=== PATIENT | female | born 1975 | race Caucasian/White ===

== ENCOUNTER 2020-05-02 14:01 | Outpatient (CLI) | payer OTHER, SELFPAY ==
--- NOTE | ~2020-05-02 | MR_ITS ---
EXAMINATION: MR brain/brain stem wo/w con DATE: 05/02/2020 15:26 INDICATION: Multiple sclerosis. TECHNIQUE: Magnetic resonance imaging (MRI) of the brain and brainstem was performed without and with 20 mL MultiHance intravenous contrast. Sequences included sagittal and axial T1-weighted FLAIR, axia l T1-weighted FSE, axial diffusion-weighted FS EPI, sagittal T2-weighted FLAIR, axial T2*-weighted GR E, axial T2-weighted FLAIR Propeller, and axial T2-weighted Propeller. Postcontrast sequences include d axial, coronal, and sagittal T1-weighted FSE. Apparent diffusion coefficient (ADC) maps were create d. COMPARISON: Brain MRI 10/08/2018 FINDINGS: There are approximately 9 total lesions of increased T2-weighted signal intensity in the br ain, one of which is new from 10/08/18. Of these lesions, approximately 1 is periventricular, none ar e juxtacortical, and none are infratentorial. None of the lesions enhance. There is no acute ischemic infarct or intracranial hemorrhage. The ventricles are normal in size. The paranasal sinuses are con ar. The orbits are normal. The mastoid air cells are normal. IMPRESSION: 1. Slight worsening of mild cerebral white matter disease, consistent with multiple sclerosis and/or chronic small vessel ischemic disease (given the smoking history). Reviewed, dictated and finalized at location A. IMPRESSION: 1. Slight worsening of mild cerebral white matter disease, consistent with mult iple sclerosis and/or chronic small vessel ischemic disease (given the smoking history).
[2020-05-02 14:44] LABS: Estimated Glomerular Filt Rate > 60
== END 2020-05-02 14:02 | disposition home or self-care (01) ==
PROVIDERS: PCP Nurse Practitioner Family
DX: G35 Multiple sclerosis (principal); R90.82 White matter disease, unspecified
CPT/HCPCS: 36415; 70553; A9577

== ENCOUNTER 2020-07-20 00:38 | Outpatient (CLI) | payer OTHER, SELFPAY ==
[2020-07-20 19:29] LABS: SARS-CoV-2 RNA PCR Negative
== END 2020-07-20 00:39 | disposition home or self-care (01) ==
LOC: ANHCOVIDDT 00:38
PROVIDERS: PCP Nurse Practitioner Family; Visit Provider Obstetrics & Gynecology Gynecology
DX: Z01.812 Encounter for preprocedural laboratory examination (principal); Z20.828 Contact with and (suspected) exposure to other viral communicable diseases
CPT/HCPCS: 87635; C9803; U0003

== ENCOUNTER 2020-07-20 08:40 | Outpatient (CLI) | payer OTHER, SELFPAY ==
--- NOTE | 2020-07-20 08:42 | ECG_ITS ---
Measurements Intervals [place] Rate: 92 P: 52 IA: 153 QRS: 23 QRSD: 88 T: 68 QT: 336 QTc: 418 Interpretive Statements SINUS RHYTHM LOW QRS VOLTAGE IN PRECORDIAL LEADS BASELINE ARTIFACT- I, II, III, AVR, AVL, AVF BORDERLINE ECG Electronically Signed On 07-20-2020 10:27:42 CDT by Choco Orantes D.O.
== END 2020-07-20 08:41 | disposition home or self-care (01) ==
PROVIDERS: PCP Nurse Practitioner Family; Visit Provider Obstetrics & Gynecology Gynecology
DX: F17.210 Nicotine dependence, cigarettes, uncomplicated (principal); R94.31 Abnormal electrocardiogram [ECG] [EKG]
CPT/HCPCS: 93005

== ENCOUNTER 2020-07-23 00:36 | Day surgery (SDC) | payer OTHER, SELFPAY ==
[2020-07-12 14:19] VITALS: BMI 38.2
--- NOTE | 2020-07-23 08:44 | P.HP_ITS ---
History of Present Illness History of Present Illness Consent: Risks, benefits, and alternatives have been discussed and questions answered. Patient agrees to proceed with procedure. Chief complaint: Abnormal Uterine Bleeding/ Endometrial Polyp Narrative: Courtney Potter is a 44 year old female with menorrhagia. Office hysteroscopy with large polyp noted and unable to tolerate removal. Plan to proceed with hysteroscopy possible myosure and D&C. Reviewed risks of infection, bleeding, perforation, and fluid overload. Agrees to proceed. [facility] [place] Past Medical History Medical History (Updated 07/23/20 @ 08:48 by Nessa Gutierrez MD) delivery delivered x 2 Depression GERD (gastroesophageal reflux disease) History of hysteroscopy 2019 Multiple sclerosis Type 2 diabetes mellitus Surgical History Surgical History (Updated 07/23/20 @ 08:48 by Nessa Gutierrez MD) H/O breast biopsy Family History Family History (Updated 07/20/14 @ 07:13 by DOCTOR UNKNOWN) Mother Cerebrovascular accident Father Family history of lung cancer Social History Social History Smoking packs per day: 1 Smoking cigarettes per day: 20.0 Years smoked: 29 Smoking pack-years: 29.00 Smoking status: Current every day smoker Tobacco type: cigarettes Alcohol intake: current Drinks per week: 6 Substance use: never Living arrangements: with family Gender identity (if verbalized by the patient): Female Spiritual care concerns: No Meds Home Medications and Allergies Home Medications Medication Instructions Recorded Confirmed Type Probiotic (with Vitamin D3) 1 tab-cap PO DAILY 07/12/20 07/12/20 History duloxetine [Cymbalta] 60 mg PO BID 07/12/20 07/12/20 History esomeprazole magnesium [Nexium] 20 mg PO BID 07/12/20 07/12/20 History fingolimod [Gilenya] 0.5 mg PO DAILY 07/12/20 07/12/20 History temazepam 30 mg PO HS 07/12/20 07/12/20 History Allergies Allergy/AdvReac Type Severity Reaction Status Date / Time No Known Allergies Allergy Mild Unverified 07/12/20 13:46 Exam Const: General: healthy appearing and alert Orientation/consciousness: patient oriented x3 Resp: Effort & Inspection: normal respiratory effort Auscultation: clear to auscultation bilaterally Cardio: Rate: regular rate Rhythm: regular rhythm GI: GI Palp: Yes Soft to palpation, No Tenderness to palpation present (GI) and No Palpable mass present : External Female Exam: normal external appearance Speculum Exam - Vagina: normal appearance of the vagina and normal vaginal discharge Speculum Exam - Cervix: normal appearance of the cervix Bimanual exam- vagina & uterus: uterine size normal and consistency normal Bimanual Exam- Adnexa, other: normal adnexae and No adnexal tenderness Neuro: General: patient oriented x3 Assessment and Plan Assessment and plan (1) Menorrhagia: Code(s): N92.0 - Excessive and frequent menstruation with regular cycle Status: Acute Assessment and Plan: Plan to proceed with hysteroscopy, D&C, and possible myosure
--- NOTE | 2020-07-23 09:14 | WPDANESEPP ---
Anes - Eval Pre Procedure Procedure: Operation Date: 07/23/20 12:15 Proposed Procedures p Hysteroscopy, Dilation and Curettage, Possible Myosure - Nessa Gutierrez MD Date/Time: 07/23/20 09:14 Pre Op Diagnosis: Abnormal Uterine Bleeding/ Endometrial Polyp Patient Data Age: 44 Gender: F Height: 5 ft 5 in Weight: 104.33 kg Allergies Allergy/AdvReac Type Severity Reaction Status Date / Time No Known Allergies Allergy Mild Unverified 07/12/20 13:46 Home Medications Medication Instructions Recorded Confirmed Type Probiotic (with Vitamin D3) 1 tab-cap PO DAILY 07/12/20 07/12/20 History duloxetine [Cymbalta] 60 mg PO BID 07/12/20 07/12/20 History esomeprazole magnesium [Nexium] 20 mg PO BID 07/12/20 07/12/20 History fingolimod [Gilenya] 0.5 mg PO DAILY 07/12/20 07/12/20 History temazepam 30 mg PO HS 07/12/20 07/12/20 History Patient hx anesthesia problems: none Family hx anesthesia problems: none PMFSH Past Medical History Medical History delivery delivered x 2 Depression GERD (gastroesophageal reflux disease) History of hysteroscopy 2019 Menorrhagia Multiple sclerosis Type 2 diabetes mellitus Surgical History Surgical History H/O breast biopsy Family History Family History Mother Cerebrovascular accident Father Family history of lung cancer Social History Social History Smoking packs per day: 1 Smoking cigarettes per day: 20.0 Years smoked: 29 Smoking pack-years: 29.00 Smoking status: Current every day smoker Tobacco type: cigarettes Alcohol intake: current Drinks per week: 6 Substance use: never Living arrangements: with family Gender identity (if verbalized by the patient): Female Spiritual care concerns: No Exam Day of Procedure 07/23/20 09:14 Patient weight: obese Neurological: alert and oriented Risks: SINUS RHYTHM LOW QRS VOLTAGE IN PRECORDIAL LEADS BASELINE ARTIFACT- I, II, III, AVR, AVL, AV BORDERLINE ECG VR92
[2020-07-23 10:02] VITALS: BP 140/85; PULSE 95; RESP 18; TEMP 35.9; O2SAT 97
[2020-07-23] MEDS: ACETAMINOPHEN 500 MG TABLET 1000 MG PO (10:10)
[2020-07-23] MEDS: LACTATED RINGERS 1,000 ML 30 ML IV CONT (10:15)
--- NOTE | 2020-07-23 10:21 | P.PNAN_ITS ---
Anes - Eval Final PreProcedure Day of Procedure 07/23/20 10:21 Patient weight: obese Heart: regular rate and rhythm Lungs: clear to auscultation Airway: Mallampati scale class II Neurological: alert and oriented Last oral intake: >/= 8 hours ASA classification: III Emergent: no Anesthetic plan: proceed Anesthesia type and monitoring: general GIVS and standard monitoring Informed Consent: The patient's anesthetic plan and its attendant risks and b enefits were discussed with the patient/family/POA. Questions were solicited and answers provided to the satisfaction of the patient/family/POA.
--- NOTE | 2020-07-23 12:28 | SUR.OPER ---
EBL:5cc
--- NOTE | 2020-07-23 12:30 | P.OP_ITS ---
Procedure Note - Detailed Date of procedure: 07/23/20 Pre-op diagnosis: Abnormal Uterine Bleeding/ Endometrial Polyp Post-op diagnosis: other (abnormal uterine bleeding) Procedure performed: D&C hysteroscopy Description of procedure: The patient was taken to the operating room. She was placed in the dorsal lithotomy position under anesthesia. She was prepped and draped in the usual sterile fashion. [place] speculum was placed in the v agina, the cervix is grasped on the anterior lip with a tenaculum, and injected with 1% lidocaine. The uterus is sounded to 8cm. The cervix is serially dilated with Hegar to an 8. The diagnostic hysteroscope is placed with the stated findings. The hysteroscope was then removed. The medium sharp curette is used to curette the endometrium until a good uterine cry was noted in all areas. All instruments are removed. Sponge instrument and needle counts are correct per the OR staff. Anesthesia: MAC and local Surgeon: Nessa Gutierrez MD Estimated blood loss (mL): 5 Drains: No Packing: No Pathology: yes (endometrial ) Complications: No immediate complications Condition: stable Disposition: PACU Findings: uterus 8 cm; grossly normal appearing
[2020-07-23 12:32] VITALS: BP 153/87; PULSE 83; RESP 16; O2SAT 93
[2020-07-23 13:00] VITALS: BP 154/92; PULSE 81; O2SAT 97
--- NOTE | 2020-07-23 13:19 | SUR.OPER ---
EBL:5cc
[2020-07-23 13:30] VITALS: BP 140/80; PULSE 76
== END 2020-07-23 13:38 | disposition home or self-care (01) ==
PROVIDERS: PCP Nurse Practitioner Family; Visit Provider Obstetrics & Gynecology Gynecology
PROC: 0U5B8ZZ Destruction of Endometrium, Via Natural or Artificial Opening Endoscopic (ICD-10-PCS; CPT 58563; principal; 2020-07-23 12:15)
DX: N93.9 Abnormal uterine and vaginal bleeding, unspecified (principal); N84.0 Polyp of corpus uteri
CPT/HCPCS: 58558; 87635; 88305; 93005; A9270; C9803; J2250; J2405; J2704; J3010; J7030; J7120; U0003

== ENCOUNTER 2020-09-07 15:40 | Outpatient (CLI) | payer OTHER, SELFPAY ==
--- NOTE | ~2020-09-07 | MM_ITS ---
EXAMINATION: MM screening justine BI w edilma HISTORY: Screening mammogram TECHNIQUE: Craniocaudal and mediolateral oblique 3-D tomosynthesis images were obtained and synthetic 2-D images were generated. CAD analysis was submitted and interpreted. COMPARISON: 07/05/2019 diagnostic right digital mammogram and limited right breast ultrasound 06/23/2019, 02/22/2018, 02/19/2017 bilateral digital screening mammogram examinations BREAST PARENCHYMAL COMPOSITION: There are scattered areas of fibroglandular density. FINDINGS: There is no evidence of suspicious mass, calcification, or architectural distortion to sugg est malignancy in either breast. There has been no suspicious interval change. IMPRESSION: 1. No mammographic evidence of malignancy. 2. Recommend routine screening mammography in one year. BI-RADS Category 1: Negative Reviewed, dictated and finalized at location A.
== END 2020-09-07 15:41 | disposition home or self-care (01) ==
LOC: ANHIMG 15:43
PROVIDERS: PCP Nurse Practitioner Family; Visit Provider Nurse Practitioner
DX: Z12.31 Encounter for screening mammogram for malignant neoplasm of breast (principal)
CPT/HCPCS: 77063; 77067

== ENCOUNTER 2020-10-01 12:40 | Outpatient (CLI) | payer OTHER, SELFPAY | END 2020-10-01 12:41 | disposition home or self-care (01) | LOC: ANHLAB 12:44 | PROVIDERS: PCP Nurse Practitioner Family | DX: B36.9 Superficial mycosis, unspecified (principal); B49 Unspecified mycosis | CPT/HCPCS: 36415; 86698; 87385 ==

== ENCOUNTER → 2020-12-12 16:53 | Outpatient (CLI) | payer OTHER, SELFPAY ==
--- NOTE | ~2020-12-12 | XR_ITS ---
EXAMINATION: XR hip LT min 2V INDICATION: Left hip pain TECHNIQUE: Two views of the left hip are obtained. COMPARISON: 10/24/2016 FINDINGS: Bone alignment is normal. There is no fracture. Mild osteoarthritis is noted. The soft tiss ues are unremarkable. IMPRESSION: 1. Mild osteoarthritis. Reviewed, dictated and finalized at location A. ETRICAL NURSE IMPRESSION: 1. Mild osteoarthritis.
== END ==
PROVIDERS: PCP Nurse Practitioner Family; Visit Provider Nurse Practitioner Family
DX: M25.552 Pain in left hip (principal); M16.12 Unilateral primary osteoarthritis, left hip
CPT/HCPCS: 73502

== ENCOUNTER → 2021-06-13 10:20 | Outpatient (CLI) | payer OTHER, SELFPAY ==
--- NOTE | ~2021-06-13 | US_ITS ---
EXAMINATION: US transvaginal DATE: 06/13/2021 10:47 INDICATION: Amenorrhea TECHNIQUE: Multiple endovaginal sonographic images of the pelvis were obtained. COMPARISON: 03/27/2006 FINDINGS: The uterus measures 7.8 x 4.0 x 5.1 cm. The endometrial complex measures 5 mm. The right ov royal measures 2.1 x 1.3 x 2.1 cm. The left ovary measures 2.4 x 1.5 x 3.1 cm. There is normal vascular flow in the ovaries. There is no free fluid in the pelvis. IMPRESSION: 1. No sonographic correlate for the patient's symptoms. Reviewed, dictated and finalized at location B.
== END ==
PROVIDERS: Visit Provider Nurse Practitioner
DX: N91.2 Amenorrhea, unspecified (principal)
CPT/HCPCS: 76830

== ENCOUNTER 2021-06-20 12:19 | Outpatient (CLI) | payer OTHER, SELFPAY ==
--- NOTE | ~2021-06-20 | MR_ITS ---
EXAMINATION: MR cervical spine wo con EXAM DATE: 06/20/2021 13:12 INDICATION: Cervical radiculopathy, neck pain and upper back pain, left arm pain and tingling. TECHNIQUE: Multi-sequential, multiplanar MR images of the cervical spine were obtained without contra st. Axial T2, axial T2 MERGE sequence. Sagittal T1, T2, T2 fat saturation images also obtained. Th ere is no prior study for comparison. FINDINGS: The vertebral bodies are aligned in the AP dimension. Vertebral body and disc heights are well-maintained. There are no suspicious marrow signal abnormalities. The spinal cord signal intensit y and intrinsic morphology is normal. Cervicomedullary junction is normal in appearance. Paraspinal s oft tissue is unremarkable. Level by level evaluation: C2-C3: Disc does not extend beyond the endplate margin. Uncovertebral joint arthropathy: None. Facet joint arthropathy: Mild. Neural foraminal stenosis: No stenosis. Central canal stenosis: No stenosis. C3-C4: Disc does not extend beyond the endplate margin. Uncovertebral joint arthropathy: Mild left. Facet joint arthropathy: Mild. Neural foraminal stenosis: No stenosis. Central canal stenosis: No stenosis. C4-C5: Disc does not extend beyond the endplate margin. Uncovertebral joint arthropathy: Mild bilateral. Facet joint arthropathy: Mild to moderate right, mild left. Neural foraminal stenosis: No stenosis. Central canal stenosis: No stenosis. C5-C6: Mild bilateral Uncovertebral joint arthropathy: Mild to moderate left, mild right. Facet joint arthropathy: Mild to moderate left, mild right. Neural foraminal stenosis: Minimal left. Central canal stenosis: No stenosis. C6-C7: Disc does not extend beyond the endplate margin. Uncovertebral joint arthropathy: None. Facet joint arthropathy: Mild to moderate left, mild right. Neural foraminal stenosis: Mild to moderate bilateral. Central canal stenosis: No stenosis. C7-T1: Disc does not extend beyond the endplate margin. Uncovertebral joint arthropathy: Mild left. Facet joint arthropathy: Mild bilateral. Neural foraminal stenosis: No stenosis. Central canal stenosis: No stenosis. IMPRESSION: 1. Mild cervical spondylosis. Reviewed, dictated and finalized at location D.
--- NOTE | ~2021-06-20 | MR_ITS ---
EXAMINATION: MR thoracic spine wo con EXAM DATE: 06/20/2021 13:27 INDICATION: Thoracic radiculopathy. TECHNIQUE: Multi-sequential, multiplanar MR images of the thoracic spine were obtained without contra st. Sagittal T1, T2, T2 fat saturation, axial T2 weighted images reviewed. Comparison is made to ofelia or examination from 03/04/2011. FINDINGS: Interval development of segment of mildly increased midthoracic spinal cord signal intensit y at the T9 level without expansion or volume loss. Appearance most consistent with plaque of quiesce nt multiple sclerosis or acute disseminated encephalomyelitis (solitary finding). Myelomalacia should demonstrate volume loss and tumor typically would demonstrate expansion or enhancement (this was onl y a noncontrast exam). Finding is new compared to 2010. The vertebral bodies are aligned in the AP dimension. Vertebral body and disc heights are well-mainta ined. No more than mild thoracic disc disease and facet arthropathy at any given level, without cent ral canal or neural foraminal stenosis. There are no suspicious marrow signal abnormalities. Paraspin al soft tissue is unremarkable. IMPRESSION: 1. Single focus of abnormal thoracic cord signal, this could be sequela from ADEM or multiple sclero sis. Consider 6 month follow-up thoracic MR (please obtained without and with contrast). 2. Mild thoracic spondylosis without stenosis. Reviewed, dictated and finalized at location D. IMPRESSION: 1. Single focus of abnormal thoracic cord signal, this could be sequela from A DEM or multiple sclerosis. Consider 6 month follow-up thoracic MR (please obtai reagan without and with contrast). 2. Mild thoracic spondylosis without stenosis.
== END 2021-06-20 12:20 ==
DX: M54.12 Radiculopathy, cervical region (principal); M47.814 Spondylosis without myelopathy or radiculopathy, thoracic region; M47.812 Spondylosis without myelopathy or radiculopathy, cervical region
CPT/HCPCS: 72141; 72146

== ENCOUNTER 2021-10-03 17:13 | Outpatient (CLI) | payer OTHER, SELFPAY ==
--- NOTE | ~2021-10-03 | MM_ITS ---
EXAMINATION: MM screening justine BI w edilma HISTORY: Screening mammogram TECHNIQUE: Craniocaudal and mediolateral oblique 3-D tomosynthesis images were obtained and synthetic 2-D images were generated. CAD analysis was submitted and interpreted. COMPARISON: 09/07/2020 bilateral screening mammogram 07/05/2019 diagnostic right mammogram and limited right breast ultrasound 06/23/2019 bilateral screening mammogram BREAST PARENCHYMAL COMPOSITION: There are scattered areas of fibroglandular density. FINDINGS: There is no evidence of suspicious mass, calcification, or architectural distortion to sugg est malignancy in either breast. There has been no suspicious interval change. IMPRESSION: 1. No mammographic evidence of malignancy. 2. Recommend routine screening mammography in one year. BI-RADS Category 1: Negative Reviewed, dictated and finalized at location A. ISTRY LABORATORY TECHNICIAN
== END 2021-10-03 17:14 | disposition home or self-care (01) ==
LOC: ANHIMG 17:14
PROVIDERS: Visit Provider Nurse Practitioner
DX: Z12.31 Encounter for screening mammogram for malignant neoplasm of breast (principal)
CPT/HCPCS: 77063; 77067

== ENCOUNTER 2022-04-14 15:18 | Outpatient (CLI) | payer OTHER, SELFPAY ==
--- NOTE | ~2022-04-14 | MR_ITS ---
EXAMINATION: MR thoracic spine wo/w con DATE: 04/14/2022 16:07 INDICATION: Thoracic radiculopathy. History of MS. TECHNIQUE: Magnetic resonance imaging (MRI) of the thoracic spine was performed without intravenous c ontrast. Sagittal localizer T1-weighted FSE of the cervical spine was obtained. Thoracic spine sequen gabrielle included sagittal T2-weighted FSE, sagittal T1-weighted FSE, sagittal T2-weighted FS FSE, and axi al T2-weighted FSE. COMPARISON: 06/20/2021 FINDINGS: Bone marrow signal is benign and homogenous. Multilevel mild loss of disc height and disc d ehydration. No severe central canal or neural foraminal narrowing. No severe facet arthropathy. No si gnificant finding in the upper abdomen. Very subtle T2 hyperintensity in the cord posterior to the T9 vertebral body, only really visible because it was much more evident in the prior study, otherwise t he cord signal is normal. No abnormal enhancement. IMPRESSION: 1. Mild multilevel degenerative disc disease. 2. No abnormal enhancement to suggest active demyelination. 3. Near-complete interval resolution of the signal abnormality previously described at the T9 cord le carina. Reviewed, dictated and finalized at location K. IMPRESSION: 1. Mild multilevel degenerative disc disease. 2. No abnormal enhancement to suggest active demyelination. 3. Near-complete interval resolution of the signal abnormality previously descr ibed at the T9 cord level.
[2022-04-14 15:42] LABS: Estimated Glomerular Filt Rate > 60
== END 2022-04-14 15:19 ==
PROVIDERS: PCP Nurse Practitioner Family; Visit Provider Nurse Practitioner Family
DX: M54.14 Radiculopathy, thoracic region (principal); G35 Multiple sclerosis; R93.7 Abnormal findings on diagnostic imaging of other parts of musculoskeletal system; M51.34 Other intervertebral disc degeneration, thoracic region
CPT/HCPCS: 72157; A9577

== ENCOUNTER → 2022-04-18 09:59 | Outpatient (CLI) | payer OTHER, SELFPAY ==
--- NOTE | ~2022-04-18 | XR_ITS ---
EXAMINATION: XR shoulder RT min 2V DATE: 04/18/2022 10:10 INDICATION: Chronic right shoulder pain. TECHNIQUE: 4 views of right shoulder were obtained. COMPARISON: Right shoulder radiographs 06/19/2015 FINDINGS: Bone alignment is normal. No fracture. Glenohumeral joint is normal. There is mild acromioc lavicular joint osteoarthritis. IMPRESSION: 1. Mild acromioclavicular joint osteoarthritis. Reviewed, dictated and finalized at location A.
== END ==
PROVIDERS: PCP Nurse Practitioner Family; Visit Provider Nurse Practitioner Family
DX: M25.511 Pain in right shoulder (principal); G89.29 Other chronic pain; M19.011 Primary osteoarthritis, right shoulder
CPT/HCPCS: 73030

== ENCOUNTER → 2022-06-27 12:05 | Outpatient (CLI) | payer OTHER, SELFPAY ==
--- NOTE | ~2022-06-27 | MR_ITS ---
EXAMINATION: MR brain/brain stem wo con DATE: 06/27/2022 12:39 INDICATION: Multiple sclerosis. TECHNIQUE: Magnetic resonance imaging (MRI) of the brain and brainstem was performed without intraven ous contrast. COMPARISON: Brain MRI 05/02/2020 FINDINGS: There are approximately 8 total lesions of increased T2-weighted signal intensity in the br ain. Of these lesions, one is periventricular, one is juxtacortical, and none are infratentorial. The re is no acute ischemic infarct or intracranial hemorrhage. The ventricles are normal in size. The pa ranasal sinuses are clear. The orbits are normal. The mastoid air cells are normal. IMPRESSION: 1. Stable mild cerebral white matter disease, consistent with multiple sclerosis and/or chronic small vessel ischemic disease. Reviewed, dictated and finalized at location A. IMPRESSION: 1. Stable mild cerebral white matter disease, consistent with multiple sclerosi s and/or chronic small vessel ischemic disease.
== END ==
PROVIDERS: PCP Nurse Practitioner Family; Visit Provider Psychiatry & Neurology Neurology
DX: G35 Multiple sclerosis (principal); R90.82 White matter disease, unspecified
CPT/HCPCS: 70551

== ENCOUNTER 2022-08-07 12:56 | Outpatient (CLI) | payer OTHER, SELFPAY ==
--- NOTE | ~2022-08-07 | MM_ITS ---
EXAMINATION: MM diagnostic justine BI w edilma HISTORY: Bilateral breast pain TECHNIQUE: ML, MLO and CC 3-D tomosynthesis images of were performed and synthetic 2-D images were ge nerated. CAD analysis was submitted and interpreted. COMPARISON: 10/03/2021, 09/07/2020bilateral screening mammogram examinations BREAST PARENCHYMAL COMPOSITION: There are scattered areas of fibroglandular density. FINDINGS: No suspicious mass or architectural distortion, malignant calcification, skin thickening or retraction or significant new or developing density is detected. IMPRESSION: 1. No mammographic evidence of malignancy 2. Routine annual mammographic screening is recommended BI-RADS Category 1: Negative Reviewed, dictated and finalized at location A.
== END 2022-08-07 12:57 | disposition home or self-care (01) ==
PROVIDERS: PCP Nurse Practitioner Family; Visit Provider Obstetrics & Gynecology Gynecology
DX: N64.4 Mastodynia (principal)
CPT/HCPCS: 77062; 77066; G0279

== ENCOUNTER 2022-10-06 12:51 | Outpatient (CLI) | payer OTHER, SELFPAY ==
--- NOTE | ~2022-10-06 | DEXA_ITS ---
Bone Density Report Name: ARLIN GUERRA Age: 47 Sex: Female Ethnicity: White Date of : 1975 Indication: postmenopausal; height loss; Referring Provider: FLORES, LUCAS Study: Bone densitometry was performed. Exam Date: October 06, 2022 Accession number: [id number] Bone Density: Region BMD T-score Z-score Classification AP Spine(L1-L4) 0.934 -1.0 -0.5 Normal Femoral Neck (Left) 0.892 0.4 0.9 Normal Total Hip (Left) 1.105 1.3 1.7 Normal Femoral Neck (Right) 0.898 0.4 0.9 Normal Total Hip (Right) 1.105 1.3 1.7 Normal Total Hip Mean 1.105 1.3 1.7 Normal World Health Organization criteria for BMD impression classify patients as: Normal (T-score at or above -1.0), Osteopenia (T-score between -1.0 and -2.5), or Osteoporosis (T-score at or below -2.5). 10-year Fracture Risk: FRAX not reported because: All T-scores for Spine Total, Hip Total, Femoral Neck at or above -1.0 Clinical Information Provided by Patient: Smokes Has used the following medications: Vitamin D Patient maximum height was 66 Menopause Age: 46 No regular weight bearing exercise Drinks caffeinated beverages Onset of menses at age 13 Number of children 2 Impression: The patient has normal bone mass. The patient has risk factors, including: smoking. Discussion: BONE DENSITY IS ABOVE THE MINIMUM DESIRABLE LEVEL AT ALL SKELETAL SITES TESTED. This patient?s bone mineral density is above the minimum desirable level (T-score -1.0 or better) at all sites measured. The patient should follow a healthful lifestyle (good nutrition with adequate calcium and vitamin D, and appropriate weight-bearing exercise). Follow-Up: Consider repeating this study in 5 years or sooner if there is some new clinical indication. Reported by: FELIPE on 10/06/2022 1:11:00 PM. Reviewed, dictated and finalized at location AJeanine YOUNG
== END 2022-10-06 12:52 | disposition home or self-care (01) ==
LOC: ANHIMG 12:53
PROVIDERS: PCP Nurse Practitioner Family; Visit Provider Nurse Practitioner
DX: Z78.0 Asymptomatic menopausal state (principal)
CPT/HCPCS: 77080

== ENCOUNTER → 2023-05-08 08:45 | Outpatient (CLI) | payer OTHER, SELFPAY ==
--- NOTE | ~2023-05-08 | MR_ITS ---
EXAMINATION: MR thoracic spine wo/w con DATE: 05/08/2023 10:33 INDICATION: Multiple sclerosis. TECHNIQUE: Magnetic resonance imaging (MRI) of the thoracic spine was performed without and with 19 m L MultiHance intravenous contrast. COMPARISON: Thoracic spine MRI 04/14/2022 FINDINGS: There is 9 degrees dextrocurvature of thoracic spine. There is thoracic kyphosis. Vertebral body heights are normal. Intervertebral disc heights are normal. At T3-T4, there is a right central protrusion with mild central canal stenosis. There is multilevel mild facet joint osteoarthritis. The re is no neural foraminal stenosis. The spinal cord signal intensity is normal. The conus medullaris is at L1-L2. IMPRESSION: 1. Normal spinal cord. 2. Mild thoracic spondylosis. Reviewed, dictated and finalized at location A.
--- NOTE | ~2023-05-08 | MR_ITS ---
EXAMINATION: MR cervical spine wo/w con DATE: 05/08/2023 10:33 INDICATION: Multiple sclerosis. TECHNIQUE: Magnetic resonance imaging (MRI) of the cervical spine was performed without and with 19 m L MultiHance intravenous contrast. COMPARISON: Cervical spine MRI 06/20/2021 FINDINGS: Bone alignment is normal. Vertebral body heights and intervertebral disc heights are normal . The spinal cord signal intensity is normal. The following disc levels are specifically discussed: C2-C3: The disc does not extend beyond the endplate margin. There is no uncovertebral joint osteoarth ritis. There is mild left facet joint osteoarthritis. There is no neural foraminal stenosis. There is no central canal stenosis. C3-C4: The disc does not extend beyond the endplate margin. There is mild left uncovertebral joint os teoarthritis. There is no facet joint osteoarthritis. There is mild left neural foraminal stenosis. T here is no central canal stenosis. C4-C5: The disc does not extend beyond the endplate margin. There is no uncovertebral joint osteoarth ritis. There is mild left facet joint osteoarthritis. There is no neural foraminal stenosis. There is no central canal stenosis. C5-C6: The disc does not extend beyond the endplate margin. There is no uncovertebral joint osteoarth ritis. There is mild right and moderate left facet joint osteoarthritis. There is mild left neural fo raminal stenosis. There is no central canal stenosis. C6-C7: The disc does not extend beyond the endplate margin. There is no uncovertebral joint osteoarth ritis. There is no facet joint osteoarthritis. There is no neural foraminal stenosis. There is no phong tral canal stenosis. C7-T1: The disc does not extend beyond the endplate margin. There is no uncovertebral joint osteoarth ritis. There is no facet joint osteoarthritis. There is no neural foraminal stenosis. There is no phong tral canal stenosis. IMPRESSION: 1. Normal spinal cord. 2. Mild cervical spondylosis. Reviewed, dictated and finalized at location A.
--- NOTE | ~2023-05-08 | MR_ITS ---
EXAMINATION: MR brain/brain stem wo/w con DATE: 05/08/2023 10:32 INDICATION: Multiple sclerosis. TECHNIQUE: Magnetic resonance imaging (MRI) of the brain and brainstem was performed without and with 19 mL MultiHance intravenous contrast. COMPARISON: Brain MRI 06/27/2022 FINDINGS: There are 10-15 lesions of increased T2-weighted signal intensity in the brain. Of these le sions, one is periventricular, two are juxtacortical, and none are infratentorial. None of the lesion s enhance. There is no acute ischemic infarct or intracranial hemorrhage. The ventricles are normal i n size. There is trace fluid in left maxillary sinus. The mastoid air cells are normal. The orbits ar e normal. IMPRESSION: 1. Stable mild cerebral white matter disease, consistent with multiple sclerosis and/or chronic small vessel ischemic disease. Reviewed, dictated and finalized at location A. IMPRESSION: 1. Stable mild cerebral white matter disease, consistent with multiple sclerosi s and/or chronic small vessel ischemic disease.
== END ==
PROVIDERS: PCP Psychiatry & Neurology Neurology; Visit Provider Psychiatry & Neurology Neurology
DX: G35 Multiple sclerosis (principal); R93.0 Abnormal findings on diagnostic imaging of skull and head, not elsewhere classified; M47.892 Other spondylosis, cervical region; M47.894 Other spondylosis, thoracic region
CPT/HCPCS: 70553; 72156; 72157; A9577

== ENCOUNTER → 2023-08-13 10:41 | Outpatient (CLI) | payer OTHER, SELFPAY ==
--- NOTE | ~2023-08-13 | MM_ITS ---
EXAMINATION: MM screening justine BI w edilma HISTORY: Screening TECHNIQUE: Craniocaudal and mediolateral oblique 3-D tomosynthesis images were obtained and synthetic 2-D images were generated. CAD analysis was submitted and interpreted. COMPARISON: Comparison to multiple prior studies sequentially, with oldest reviewed study dated 12/2017. BREAST PARENCHYMAL COMPOSITION: Breast composed of scattered areas of fibroglandular density FINDINGS: There is no evidence of suspicious mass, calcification, or architectural distortion to sugg est malignancy in either breast. There has been no suspicious interval change. IMPRESSION: 1. No mammographic evidence of malignancy. 2. Recommend routine screening mammography in one year. BI-RADS Category 1: Negative Reviewed, dictated and finalized at location A.
== END ==
PROVIDERS: PCP Nurse Practitioner; Visit Provider Nurse Practitioner
DX: Z12.31 Encounter for screening mammogram for malignant neoplasm of breast (principal)
CPT/HCPCS: 77063; 77067

== ENCOUNTER 2023-12-31 08:51 | Day surgery (SDC) | payer OTHER, SELFPAY ==
[2023-11-30 14:46] VITALS: BMI 33.1
[2023-12-14 11:16] VITALS: BMI 32.7
--- NOTE | 2023-12-30 11:35 | WPDANESEPPF ---
Anes - Initial Pre Proc Eval Procedure: Operation Date: 12/31/23 11:00 Proposed Procedures p Esophagogastroduodenoscopy - Kurtis Greene MD s Screening Colonoscopy - Kurtis Greene MD Date/Time: 12/30/23 11:35 Surgeon: Kurtis Greene MD Pre Op Diagnosis: Gerd and Neoplasm Screening Patient Data Age: 48 Gender: F Height: 1.68 m Weight: 92 kg Allergies Allergy/AdvReac Type Severity Reaction Status Date / Time No Known Allergies Allergy Mild Verified 12/14/23 11:14 Home Medications Medication Instructions Recorded Confirmed Type Probiotic (with Vitamin D3) 1 tab-cap PO DAILY 07/12/20 12/14/23 History duloxetine 60 mg capsule,delayed 60 mg PO BID 07/12/20 12/14/23 History release (Cymbalta) fingolimod 0.5 mg capsule (Gilenya) 0.5 mg PO DAILY 07/12/20 12/14/23 History azelastine 137 mcg (0.1 %) nasal 1 spray intranasal Q12H #30 mL 01/27/22 12/14/23 Rx spray aerosol atorvastatin 20 mg tablet 20 mg PO DAILY 10/21/23 12/14/23 History esomeprazole magnesium 20 mg 20 mg PO BID 10/21/23 12/14/23 History capsule,delayed release (Nexium) evening primrose oil-linoleic 1 cap PO TID 10/21/23 12/14/23 History acid-gamolenic acid 1,000 mg capsule ([place] Oil) ferrous sulfate 325 mg (65 mg 65 mg PO DAILY 10/21/23 12/14/23 History iron) tablet (Iron (ferrous sulfate)) gabapentin 300 mg tablet 300 mg PO TID 10/21/23 12/14/23 History ropinirole 0.5 mg tablet 0.5 mg PO DAILY 10/21/23 12/14/23 History semaglutide 1 mg/dose (2 mg/1.5 1 mg subcut WEEKLY 10/21/23 12/14/23 History mL) subcutaneous pen injector (Ozempic) trazodone 50 mg tablet 50 mg PO HS 10/21/23 12/14/23 History cholecalciferol (vitamin D3) 1 tablet PO DAILY 12/14/23 12/14/23 History methocarbamol 750 mg PO TID PRN Pain 12/14/23 12/14/23 History Patient hx anesthesia problems: none Family hx anesthesia problems: none Results Review: All pre-operative results and documents have been reviewed as part of the pre-operative evaluation. [facility] Past Medical History Medical History delivery delivered x 2 Depression GERD (gastroesophageal reflux disease) Hyperlipidemia Menorrhagia Multiple sclerosis Type 2 diabetes mellitus Surgical History Surgical History H/O breast biopsy History of hysteroscopy 2019 Family History Family History Mother Cerebrovascular accident Father Family history of lung cancer Social History Social History Smoking packs per day: 1 Smoking cigarettes per day: 20.0 Years smoked: 29 Smoking pack-years: 29.00 Smoking status: Current every day smoker Tobacco type: cigarettes Alcohol intake: current Drinks per week: 8 Alcohol use details: 8 per week on weekends Substance use: current Substance use type: does not use Living arrangements: with family Gender identity (if verbalized by the patient): Female Spiritual care concerns: No Anes - Eval Final PreProcedure Day of Procedure 12/30/23 11:35 Patient weight: obese Heart: regular rate and rhythm Lungs: decreased breath sounds Airway: Mallampati scale class II Neurological: alert and oriented Last oral intake: >/= 8 hours ASA classification: III Emergent: no Anesthetic plan: proceed Anesthesia type and monitoring: general GIVS and standard monitoring Results Review: All pre-operative results and documents have been reviewed as part of the pre-operative evaluation. Informed Consent: The patient's anesthetic plan and its attendant risks and benefits were discussed with the patient/family/POA. Questions were solicited and answers provided to the satisfaction of the patient/family/POA.
[2023-12-31 10:07] LABS: Glucose Point of Care 113 mg/dl (65-105)
[2023-12-31 10:12] VITALS: BP 133/99; PULSE 102; RESP 20; TEMP 36.2; O2SAT 99
[2023-12-31] MEDS: LACTATED RINGERS 1,000 ML 150 ML IV CONT (10:17)
--- NOTE | 2023-12-31 10:20 | PM.HPGS ---
History of Present Illness History of Present Illness Consent: Risks, benefits, and alternatives have been discussed and questions answered. Patient agrees to proceed with procedure. Chief complaint: Gerd and Neoplasm Screening Narrative: Courtney Potter is a 48 year old female presents for both colonoscopy and EGD. Patient desires neoplasia screening colonoscopy. Patient's weight appetite bowel movements are normal. She denies abdominal pain or bleeding. Patient does have atypical chest pain. In the past has been treated for GE reflux. She currently takes Nexium 20mg twice a day with no abdominal pain. No heartburn. Inter she occasionally gets pressure is that radiates to her back not related to activity nor diet. For this reason EGD is requested. She reports many years ago was told that she had a hiatal hernia. More recently has been treated for multiple sclerosis. Review of Systems Review of Systems: Review of systems noncontributory. [facility] Past Medical History Medical History delivery delivered x 2 Depression GERD (gastroesophageal reflux disease) Hyperlipidemia Menorrhagia Multiple sclerosis Type 2 diabetes mellitus Surgical History Surgical History H/O breast biopsy History of hysteroscopy 2019 Family History Family History Mother Cerebrovascular accident Father Family history of lung cancer Social History Social History Smoking packs per day: 1 Smoking cigarettes per day: 20.0 Years smoked: 29 Smoking pack-years: 29.00 Smoking status: Current every day smoker Tobacco type: cigarettes Alcohol intake: current Drinks per week: 8 Alcohol use details: 8 per week on weekends Substance use: current Substance use type: does not use Living arrangements: with family Gender identity (if verbalized by the patient): Female Spiritual care concerns: No Meds Home Medications and Allergies Home Medications Medication Instructions Recorded Confirmed Type Probiotic (with Vitamin D3) 1 tab-cap PO DAILY 07/12/20 12/31/23 History duloxetine 60 mg capsule,delayed 60 mg PO BID 07/12/20 12/31/23 History release (Cymbalta) fingolimod 0.5 mg capsule (Gilenya) 0.5 mg PO DAILY 07/12/20 12/31/23 History azelastine 137 mcg (0.1 %) nasal 1 spray intranasal Q12H #30 mL 01/27/22 12/31/23 Rx spray aerosol atorvastatin 20 mg tablet 20 mg PO DAILY 10/21/23 12/31/23 History esomeprazole magnesium 20 mg 20 mg PO BID 10/21/23 12/31/23 History capsule,delayed release (Nexium) evening primrose oil-linoleic 1 cap PO TID 10/21/23 12/31/23 History acid-gamolenic acid 1,000 mg capsule ([place] Oil) ferrous sulfate 325 mg (65 mg 65 mg PO DAILY 10/21/23 12/31/23 History iron) tablet (Iron (ferrous sulfate)) gabapentin 300 mg tablet 300 mg PO TID 10/21/23 12/31/23 History ropinirole 0.5 mg tablet 0.5 mg PO DAILY 10/21/23 12/31/23 History semaglutide 1 mg/dose (2 mg/1.5 1 mg subcut WEEKLY 10/21/23 12/31/23 History mL) subcutaneous pen injector (Ozempic) trazodone 50 mg tablet 50 mg PO HS 10/21/23 12/31/23 History cholecalciferol (vitamin D3) 1 tablet PO DAILY 12/14/23 12/31/23 History methocarbamol 750 mg PO TID PRN Pain 12/14/23 12/31/23 History Allergies Allergy/AdvReac Type Severity Reaction Status Date / Time No Known Allergies Allergy Mild Verified 12/31/23 10:11 Vital Signs Vital Signs - 24 hr 12/31/23 10:12 Temperature 97.2 F L Pulse Rate 102 H Respiratory Rate 20 Blood Pressure 133/99 H Pulse Oximetry 99 Oxygen Delivery Room Air Exam Narrative: Physical exam reveals patient signs stable. HEENT exam is unremarkable. Patient is anicteric. Lungs are clear to auscultation and to percussion.
[2023-12-31 11:36] VITALS: BP 129/93; PULSE 83; RESP 18; O2SAT 99
[2023-12-31 11:46] VITALS: BP 130/87; PULSE 76; RESP 18; O2SAT 100
--- NOTE | 2023-12-31 11:49 | WPDANESPN ---
Anes - Prog Note Post-Op Date/Time: 12/31/23 11:49 Cardiovascular status: normal Respiratory status: normal Airway patency: baseline Mental status: baseline Post-Op hydration status: normal Vital Signs: Last Vital Signs Temp 36.2 C L 12/31/23 10:12 Pulse 102 H 12/31/23 10:12 Resp 20 12/31/23 10:12 BP 133/99 H 12/31/23 10:12 Pulse Ox 99 12/31/23 10:12 O2 Del Method Room Air 12/31/23 10:12 Pain Score (VAS): 0 I/O: Intake & Output 12/30/23 12/31/23 12/31/23 23:59 07:59 15:59 Intake Total 900 Balance 900 12/31/23 10:04 POC Capillary Glucose 113 H Patient Feedback: Patient satisfied with anesthetic care.
[2023-12-31 11:56] VITALS: BP 132/85; PULSE 78; RESP 18; O2SAT 100
== END 2023-12-31 12:15 | disposition home or self-care (01) ==
PROVIDERS: PCP Nurse Practitioner Family; Visit Provider Internal Medicine Gastroenterology
PROC: 0DJ08ZZ Inspection of Upper Intestinal Tract, Via Natural or Artificial Opening Endoscopic (ICD-10-PCS; CPT 43235; principal; 2023-12-31 11:00)
PROC: 0DJD8ZZ Inspection of Lower Intestinal Tract, Via Natural or Artificial Opening Endoscopic (ICD-10-PCS; CPT 45378; 2023-12-31 11:00)
DX: Z12.11 Encounter for screening for malignant neoplasm of colon (principal); R07.89 Other chest pain; K21.9 Gastro-esophageal reflux disease without esophagitis; K64.8 Other hemorrhoids; K44.9 Diaphragmatic hernia without obstruction or gangrene
CPT/HCPCS: 45378; 43235

== ENCOUNTER 2024-11-25 14:00 | Outpatient (CLI) | payer MEDICARE, OTHER, SELFPAY ==
--- NOTE | ~2024-11-25 | MM_ITS ---
EXAMINATION: MM screening justine BI w edilma HISTORY: Screening mammogram TECHNIQUE: Craniocaudal and mediolateral oblique 3-D tomosynthesis images were obtained and synthetic 2-D images were generated. CAD analysis was submitted and interpreted. COMPARISON: 08/13/2023, 08/07/2022, 10/03/2021 BREAST PARENCHYMAL COMPOSITION:Not Dense. The breasts are almost entirely fatty FINDINGS: No suspicious mass, calcification, or architectural distortion are identified in either jolynn ast to suggest malignancy. There has been no suspicious interval change. IMPRESSION: No mammographic evidence of malignancy. Recommend routine screening mammography in one year. BI-RADS Category 1: Negative Reviewed, dictated and finalized at location . CE AUTOMATION TECHNICIAN
== END 2024-11-25 14:01 | disposition home or self-care (01) ==
LOC: ANHIMG 14:03
PROVIDERS: PCP Nurse Practitioner; Visit Provider Nurse Practitioner
DX: Z12.31 Encounter for screening mammogram for malignant neoplasm of breast (principal)
CPT/HCPCS: 77063; 77067

== ENCOUNTER 2025-11-08 15:05 | Outpatient (CLI) | payer MEDICARE, OTHER, SELFPAY ==
--- NOTE | ~2025-11-08 | DEXA_ITS ---
Bone Density Report Name: ARLIN GUERRA Age: 50 Sex: Female Ethnicity: White Date of : 1975 Indication: postmenopausal; parental hip fracture; height loss; asthma or emphysema; Referring Provider: FLORES, LUCAS Study: Bone densitometry was performed. Exam Date: November 08, 2025 Accession number: [id number] Bone Density: Region BMD T-score Z-score Classification AP Spine(L1-L4) 0.872 -1.6 -0.9 Osteopenia Femoral Neck (Left) 0.819 -0.3 0.4 Normal Total Hip (Left) 1.009 0.5 1.0 Normal Femoral Neck (Right) 0.815 -0.3 0.4 Normal Total Hip (Right) 0.987 0.4 0.8 Normal Total Hip Mean 0.998 0.5 0.9 Normal World Health Organization criteria for BMD impression classify patients as: Normal (T-score at or above -1.0), Osteopenia (T-score between -1.0 and -2.5), or Osteoporosis (T-score at or below -2.5). 10-year Fracture Risk(1): Major Osteoporotic Fracture 6.5% Hip Fracture 0.1% Reported Risk Factors: [place] (), Neck BMD=0.819, BMI=31.6, parental fracture, smoking (1) FRAX(R) Version 3.08. Fracture probability calculated for an untreated patient. Fracture probability may be lower if the patient has received treatment. Previous Exams: Region Exam Age BMD T-score BMD Change BMD Change Date g/cm2 vs Baseline vs Previous AP Spine (L1-L4) 11/08/2025 50 0.872 -1.6 -0.062 (-6.6%) -0.062 (-6.6%) 10/06/2022 47 0.934 -1.0 Total Hip(Left) 11/08/2025 50 1.009 0.5 -0.096 (-8.7%) -0.096 (-8.7%) 10/06/2022 47 1.105 1.3 Total Hip(Right) 11/08/2025 50 0.987 0.4 -0.118 (-10.7% -0.118 (-10.7% 10/06/2022 47 1.105 1.3 *Denotes significance at 95% confidence level, LSC for AP Spine = 0.022 g/cm2, LSC for Total Hip = 0.027 g/cm2 Clinical Information Provided by Patient: Parent has had a hip fracture Smokes Has used the following medications: Vitamin D Has the following medical conditions: Asthma or Emphysema Patient maximum height was 66 Menopause Age: 46 No regular weight bearing exercise Drinks caffeinated beverages Onset of menses at age 13 Number of children 2 Impression: The patient has low bone mass, based on the Total Spine T-score. The patient has an estimated ten-year risk of hip fracture of 0.1% and an estimated ten-year risk of major fracture of 6.5%, based on the WHO FRAX algorithm. The patient has risk factors, including: parental hip fracture, smoking. The BMD for the AP Spine (L1-L4) decreased, changing by -6.6% since the last DXA exam. The BMD for the Total Hip(Left) decreased, changing by -8.7% since the last DXA exam. The BMD for the Total Hip(Right) decreased, changing by -10.7% since the last DXA exam. Discussion: BONE DENSITY IS LOW AT ONE OR MORE SKELETAL SITES. This patient's lowest T-score is low at one or more skeletal sites. It meets the World Health Organization's (WHO) criteria for ?low bone mass? (T-score between -1.0 and -2.5). The patient's 10-year risk of fracture as calculated by FRAX is less than the threshold where pharmacological therapy is recommended by the National Osteoporosis Foundation (NOF). However, all treatment decisions require clinical judgment and consideration of individual patient factors, including patient preferences, comorbidities, previous drug use, risk factors not captured in the FRAX model (e.g., frailty, falls, vitamin D deficiency, increased bone turnover, interval significant decline in bone density) and possible under or overestimation of fracture risk by FRAX. The patient should follow a healthful lifestyle (good nutrition with adequate calcium and vitamin D, and appropriate weight-bearing exercise). Follow-Up: Consider repeating this study in 2 years to reassess this patient's status, or sooner if there is some new clinical indication. Reported by: SE on 11/08/2025 3:45:00 PM. Reviewed, dictated and finalized at location A.
--- OUTSIDE RECORDS SUMMARY | 2025-11-08 17:44 | XMS_ITS | Encounter Summary ---
Author Organization [facility] - [facility] Address [facility] [place] [address] Care Team Providers Care Folding Machine Operator Name Role Phone Christiano Umaña MD Unavailable [phone] Mono Estrada MD Unavailable Janelle Del Real NP Primary Care Provider [phone] Encounter Details Date Type Department Care Team (Late st Contact Info) Description 08/23/2024 Akimbi Systemst Message Enc [facility] Medical Group Multispecialty Care - [place] [address] [place], [place] [id number] Janelle Del Real, TAY [address] [place] [address] Pain management Social History Tobacco Use Types Packs/Day Years Used Date Smoking Tobacco: Every Day Cigarettes 1 32 Passive Smoke Exposure: Current Smokeless Tobacco: Never Comments:provider to consuel Alcohol Use Standard Drinks/Week Comments Yes 10 (1 standard drink = 0.6 oz pu re alcohol) weekends [facility] Utilities Answer Date Recorded In the past 12 months has [facility] i[facility]acked, gas, oil, or water [employer] threatened to shut off services in your home? No 03/19/2024 Humiliation, Afraid, Rape, and Kick questionnair e Answer Date Recorded Within the last year, have y ou been afraid of your partner or ex-partner? No 03/19/2024 Within the last year, have y ou been humiliated or emotionally abused in other ways by your partner or ex-partner? No Within the last year, have y ou been kicked, hit, slapped, or otherwise physically hurt by your partner or ex-partner? No 03/19/2024 Within the last year, have y ou been raped or forced to have any kind of sexual activity by your partner or ex-partner? No 03/19/2024 Social Connection and Isolation Panel Answer Date Recorded In a typical week, how many times do you talk on the phone with family, friends, or neighbors? Three times a week 03/19/20 How often do you get togethe r with friends or relatives? Once a week 03/19/2024 How often do you attend chur or temple services? 1 to 4 times per year 03/19/2024 Do you belong to any clubs o r organizations such as samaritan groups, unions, fraternal or athletic groups, or school groups? No 03/19/2024 How often do you attend meet ings of the clubs or organizations you belong to? Never 03/19/2024 Are you , , di vorced, , never , or living with a partner? 03/19/2024 AUDIT-C Answer Date Recorded Q1: How often do you have a drink containing alc ohol? 2-4 times a month 03/19/2024 Q2: How many drinks containi ng alcohol do you have on a typical day when you are drinking? 7 to 9 03/19/2024 Q3: How often do you have si x or more drinks on one occasion? Less than monthly 03/19/2024 Overall Financial Resource Strain (CARDIA) Answe r Date Recorded How hard is it for you to pa y for the very basics like food, housing, medical care, and heating? Somewhat hard 03/19/2024 PHQ-2 Answer Date Recorded Patient Health Questionnaire-2 Score 0 03/08/2024 [facility] Occupational Stress Questionnaire Answer Date Recorded Do you feel stress - tense, restless, nervous, or anxious, or unable to sleep at night because your mind is troubled all the time - these days? To some extent 03/19/2024 Exercise Vital Sign Answer Date Recorde d On average, how many days pe r week do you engage in moderate to strenuous exercise (like a brisk walk)? 1 day 03/19/2024 On average, how many minutes do you engage in exercise at this level? 20 min 03/19/2024 Hunger Vital Sign Answer Date Recorded Within the past 12 months, y ou worried that your food would run out before you got the money to buy more. Never true 03/19/20 24 Within the past 12 months, t he food you bought just didn't last and you didn't have money to get more. Never true 03/19/2024 PRAPARE - Transportation Answer Date Re corded In the past 12 months, has l ack of transportation kept you from medical appointments or from getting medications? No 02/22 In the past 12 months, has l ack of transportation kept you from meetings, work, or from getting things needed for daily living? No 03/19/2024 Housing Stability Vital Sign Answer Rufus e Recorded In the last 12 months, was t here a time when you were not able to pay the mortgage or rent on time? No 03/19/2024 In the past 12 months, how m any times have you moved where you were living? 0 03/19/2024 At any time in the past 12 m [facility], were you homeless or living in a jail (including now)? No 03/19/2024 Comments No Sex and Gender Information Value Date Recorded Sex Assigned at Female 12/28/2024 3:21 PM TRIAL PARALEGAL Legal Sex Female 4:42 PM CDT Gender Identity Female 05/30/2025 11:35 AM CDT Sexual Orientation Not on file Occupation Industry Job Start Date Job End Date [employer] Not on file Not on file Not on file documented as of this encounter Functional Status * Are you deaf or do you have serious difficulty hearing Answer Date of Assessment Author Status No 03/19/2024 8:00 PM CDT Pearl Rivera R N Active * Are you blind or do you have serious difficulty seeing, even when wearing glasses? Answer Date of Assessment Author Status No 03/19/2024 8:00 PM CDT Pearl Rivera R N Active * Do you have serious difficulty walking or climbing stairs? Answer Date of Assessment Author Status No 03/19/2024 8:00 PM GENNYT Pearl Rivera R N Active * Do you have difficulty dressing or bathing? Answer Date of Assessment Author Status No 03/19/2024 8:00 PM CDT Pearl Rivera R N Active * Because of a physical, mental, or emotional condition, do you have difficulty doing errands alone such as visiting a doctor's office or shopping? Answer Date of Assessment Author Status No 03/19/2024 8:00 PM CDT Pearl Rivera R N Active documented as of this encounter Mental Status * Because of a physical, mental, or emotional condition, do you have serious difficulty concentrating, remembering, or making decisions? Answer Entry Date Author Status No 03/19/2024 8:00 PM CDT Pearl Rivera R N Active documented in this encounter Plan of Treatment Upcoming Encounters Date Type Department Care Team (Late st Contact Info) Description 11/14/2025 12:40 PM TRIAL PARALEGAL Office Visit [facility] Multispecialty Care - [place] [address] [place] [address] Janelle Del Real, TAY [address] [place] [address] 11/27/2025 12:00 PM TRIAL PARALEGAL Office Visit [facility] [place] [address] Christiano Umaña MD [facility] [address] [place] [address] 11/27/2025 2:00 PM TRIAL PARALEGAL Appointment [facility] Mammography [address] [place], [place] [id number] Janelle Del Real, TAY [address] [facility] [address] [place] [address] documented as of this encounter Visit Diagnoses Not on filedocumented in this encounter Additional Health Concerns Assessment Noted Time PHQ-9 Depression Total Score: 5 12/08/19 19 1:27 PM TRIAL PARALEGAL documented as of this encounter Care Teams Folding Machine Operator Relationship Specialty Start Date End Date Janelle Del Real, STANDARDS ANALYST [address] [facility] [address] [place] [address] PCP - General NURSE PRACTITIONER 04/21/24 Christiano Umaña MD [facility] [address] [place] [address] Consulting Physician CARDIOVASCULAR DISEASE 01/22/24 Mono Estrada MD [address] [facility] [address] [place] [address] NEUROLOGY 01/22/24 documented as of this encounter
--- OUTSIDE RECORDS SUMMARY | 2025-11-08 17:44 | XMS_ITS | Encounter Summary ---
Author Organization [facility] Address [address] [place] [address] Care Team Providers Care Body Shop Technician Name Role Phone Patti Langley HUMAN SERVICES SUPERVISOR Primary Care Provider Unavaila Christiano Reynolds MD Unavailable [phone] Mono Estrada MD Unavailable Janelle Del Real HUMAN SERVICES SUPERVISOR Primary Care Provider [phone] Encounter Details Date Type Department Care Team (Late st Contact Info) Description 04/10/2021 Noaht Message Enc [facility] Medical Group Family Medicine - [place] [address] [place] [address] Patti Langley, HUMAN SERVICES SUPERVISOR Follow Up/Update Social History Tobacco Use Types Packs/Day Years Used Date Smoking Tobacco: Every Day Cigarettes 1 29 Smokeless Tobacco: Never Alcohol Use Standard Drinks/Week Comments Yes 0 (1 standard drink = 0.6 oz pur e alcohol) weekends AUDIT-C Answer Date Recorded Frequency of Alcohol Consumption 2-4 times a thu12/08/2018 Average Number of Drinks 5 or 6 019 Frequency of Binge Drinking Not on file 11/23 PHQ-2 Answer Date Recorded PHQ-2 Score - If the patient scores above 3, please move on to questions 3-9 0 09/27/2020 Comments No Sex and Gender Information Value Date Recorded Sex Assigned at Female 12/28/2024 3:21 PM STOREROOM KEEPER Legal Sex Female 4:42 PM CDT Gender Identity Female 05/30/2025 11:35 AM CDT Sexual Orientation Not on file COVID-19 Exposure Response Date Recorded In the last month, have you been in contact with someone who was confirmed or suspected to have Coronavirus / COVID-19? No / Unsure 03/20/2021 11:30 AM CDT documented as of this encounter Progress Notes * Tom Kasper MA - 04/10/2021 11:59 AM CDT Please advise. documented in this encounter Plan of Treatment Upcoming Encounters Date Type Department Care Team (Late st Contact Info) Description 11/14/2025 12:40 PM STOREROOM KEEPER Office Visit [facility] Medical Group Multispecialty Care - [place] [address] [place] [address] Janelle Del Real, TAY [address] [facility] [address] [place] [address] 11/27/2025 12:00 PM STOREROOM KEEPER Office Visit [facility] [facility] [address] [place] [address] Christiano Umaña MD [facility] [address] [place] [address] 11/27/2025 2:00 PM STOREROOM KEEPER Appointment [facility] Mammography [address] [place] [address] Janelle Del Real, HUMAN SERVICES SUPERVISOR [address] [facility] [address] [place] [address] documented as of this encounter Visit Diagnoses Not on filedocumented in this encounter Additional Health Concerns Assessment Noted Time PHQ-9 Depression Total Score: 5 12/08/19 19 1:27 PM STOREROOM KEEPER documented as of this encounter Care Teams Body Shop Technician Relationship Specialty Start Date End Date Patti Langley, HUMAN SERVICES SUPERVISOR PCP - General NURSE PRACTITIONER 11/29/18 04/20/24 Janelle Del Real, HUMAN SERVICES SUPERVISOR [address] [facility] [address] [place] [address] PCP - General NURSE PRACTITIONER 04/21/24 Christiano Umaña MD [facility] [address] [place] [address] Consulting Physician CARDIOVASCULAR DISEASE 01/22/24 Mono Estrada MD [address] [facility] [address] [place] [address] NEUROLOGY 01/22/24 documented as of this encounter
--- OUTSIDE RECORDS SUMMARY | 2025-11-08 17:44 | XMS_ITS | Encounter Summary ---
Author Organization [facility] Address [address] [place] [address] Care Team Providers Care Radiology Transporter Name Role Phone Patti Langley PAYROLL COORDINATOR Primary Care Provider Unavaila Christiano Reynolds MD Unavailable [phone] Mono Estrada MD Unavailable Janelle Del Real PAYROLL COORDINATOR Primary Care Provider Encounter Details Date Type Department Care Team (Late st Contact Info) Description 04/21/2023 800APPt Message Enc [facility] Medical Group Family Medicine - [place] [address] [place] [address] Patti Langley, PAYROLL COORDINATOR Ear pressure and pain Social History Tobacco Use Types Packs/Day Years Used Date Smoking Tobacco: Every Day Cigarettes 1 32 Smokeless Tobacco: Never Comments:provider to consuel Alcohol Use Standard Drinks/Week Comments Yes 10 (1 standard drink = 0.6 oz pu re alcohol) AUDIT-C Answer Date Recorded Frequency of Alcohol Consumption 2-4 times a thu12/08/2018 Average Number of Drinks 5 or 6 019 Frequency of Binge Drinking Not on file 11/23 PHQ-2 Answer Date Recorded PHQ-2 Score - If the patient scores above 3, please move on to questions 3-9 0 05/28/2022 Comments No Sex and Gender Information Value Date Recorded Sex Assigned at Female 12/28/2024 3:21 PM VACUUM REPAIRER Legal Sex Female 4:42 PM CDT Gender Identity Female 05/30/2025 11:35 AM CDT Sexual Orientation Not on file 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 No / Unsure 04/22/2023 12:34 PM CDT documented as of this encounter Progress Notes * Tom Kasper MA - 04/22/2023 10:07 AM CDT Spoke to pt and she is scheduled for VV today 04/22/23 with Patti. documented in this encounter Plan of Treatment Upcoming Encounters Date Type Department Care Team (Late st Contact Info) Description 11/14/2025 12:40 PM VACUUM REPAIRER Office Visit [facility] Medical Group Multispecialty Care - [place] [address] [place] [address] Janelle Del Real, PAYROLL COORDINATOR [address] [place] [address] 11/27/2025 12:00 PM VACUUM REPAIRER Office Visit [facility] THREE [facility] [address] [place] [address] Christiano Umaña MD Three [facility] [address] [place] [address] 11/27/2025 2:00 PM VACUUM REPAIRER Appointment [facility] Mammography [address] [place] [address] Janelle Del Real PAYROLL COORDINATOR [address] [facility] [address] [place] [address] documented as of this encounter Visit Diagnoses Not on filedocumented in this encounter Additional Health Concerns Assessment Noted Time PHQ-9 Depression Total Score: 5 12/08/19 19 1:27 PM VACUUM REPAIRER documented as of this encounter Care Teams Radiology Transporter Relationship Specialty Start Date End Date Patti Langley PAYROLL COORDINATOR PCP - General NURSE PRACTITIONER 11/29/18 04/20/24 Janelle Del Real NP [facility] [address] [place] [address] PCP - General NURSE PRACTITIONER 04/21/24 Christiano Umaña MD [facility] [address] [place] [address] Consulting Physician CARDIOVASCULAR DISEASE 01/22/24 Mono Estrada MD [address] [facility] [address] [place] [address] NEUROLOGY 01/22/24 documented as of this encounter
--- OUTSIDE RECORDS SUMMARY | 2025-11-08 17:44 | XMS_ITS | Encounter Summary ---
Author Organization [facility] Address [facility] [place] [address] Care Team Providers Care Business Process Representative Name Role Phone Patti Langley HEAD OF OPERATION AND LOGISTICS Primary Care Provider Unavaila ble Christiano Umaña MD Unavailable Mono Estrada MD Unavailable Janelle Del Real HEAD OF OPERATION AND LOGISTICS Primary Care Provider Encounter Details Date Type Department Care Team (Late st Contact Info) Description 10/01/2021 Prep for Procedure [facility] [place] [address] [id number] Jaylene Garcia NP 3 [facility] [address] [place] [address] [id number] (Work) Social History Tobacco Use Types Packs/Day Years [...] Sex Assigned at Female 12/28/2024 3:21 PM MANAGEMENT NURSE RN Legal Sex Female 4:42 PM CDT Gender [...] have Coronavirus / COVID-19? No / Unsure 2021 3:00 PM CDT documented as of this encounter Plan of Treatment Upcoming Encounters Date Type Department Care Team (Late st Contact Info) Description 11/14/2025 12:40 PM MANAGEMENT NURSE RN [facility] Mult[facility] Care - [place] [address] [place] [address] Janelle Del Real, TAY [address] [facility] [address] [place] [address] 11/27/2025 12:00 PM MANAGEMENT NURSE RN Office Visit [facility] THREE [facility], [facility] [address] [place] [address] Christiano Umaña MD Three [facility] [address] [place], [place] [id number] 11/27/2025 2:00 PM MANAGEMENT NURSE RN Appointment [facility] Mammography [address] [place], [place] [id number] Janelle Del Real, HEAD OF OPERATION AND LOGISTICS [address] [facility] [address] [place] [address] documented as of this encounter Visit Diagnoses Not on filedocumented in this encounter Additional Health Concerns Assessment Noted Time PHQ-9 Depression Total Score: 5 12/08/19 19 1:27 PM MANAGEMENT NURSE RN documented as of this encounter Care Teams Business Process Representative Relationship Specialty Start Date End Date Patti Langley NP PCP - General NURSE PRACTITIONER 11/29/18 04/20/24 Janelle Del Real, HEAD OF OPERATION AND LOGISTICS [address] [facility] [address] [place] [address] PCP - General NURSE PRACTITIONER 04/21/24 Christiano Umaña MD Three [facility] [address] [place] [address] Consulting Physician CARDIOVASCULAR DISEASE 01/22/24 Mono Estrada MD [address] [facility] [address] [place] [address] NEUROLOGY 01/22/24 documented as of this encounter
--- OUTSIDE RECORDS SUMMARY | 2025-11-08 17:44 | XMS_ITS | Encounter Summary ---
Author Organization [facility] Address [address] [place] [address] Care Team Providers Care Human Resources Operations Coordinator Name Role Phone Patti Langley OIL WELL FISHING TOOL OPERATOR Primary Care Provider Unavaila Christiano Reynolds MD Unavailable [phone] Mono Estrada MD Unavailable Janelle Del Real OIL WELL FISHING TOOL OPERATOR Primary Care Provider Encounter Details Date Type Department Care Team (Late st Contact Info) Description 06/17/2021 rVue Message Enc [facility] Medical Group Family Medicine - [place] [address] [place] [address] Ivan, [facility] Provider RE:Video Visit Social History Tobacco Use Types Packs/Day Years [...] Sex Assigned at Female 12/28/2024 3:21 PM AUDIO VISUAL MANAGER Legal Sex Female 4:42 PM CDT Gender [...] have Coronavirus / COVID-19? No / Unsure 05/22/2021 8:34 AM CDT documented as of this encounter Plan of Treatment Upcoming Encounters Date Type Department Care Team (Late st Contact Info) Description 11/14/2025 12:40 PM AUDIO VISUAL MANAGER Office Visit [facility] Medical Group Multispecialty Care - [place] [address] [place] [address] Janelle Del Real, OIL WELL FISHING TOOL OPERATOR [address] [facility] [address] [place] [address] 11/27/2025 12:00 PM AUDIO VISUAL MANAGER Office Visit [facility] THREE [facility], [facility] [address] [place] [address] Christiano Umaña MD Three [facility] [address] [place] [address] 11/27/2025 2:00 PM AUDIO VISUAL MANAGER Appointment [facility] Mammography [address] [place] [address] Janelle Del Real, OIL WELL FISHING TOOL OPERATOR [address] [facility] [address] [place] [address] documented as of this encounter Visit Diagnoses Not on filedocumented in this encounter Additional Health Concerns Assessment Noted Time PHQ-9 Depression Total Score: 5 12/08/19 19 1:27 PM AUDIO VISUAL MANAGER documented as of this encounter Care Teams Human Resources Operations Coordinator Relationship Specialty Start Date End Date Patti Langley NP PCP - General NURSE PRACTITIONER 11/29/18 04/20/24 Janelle Del Real, OIL WELL FISHING TOOL OPERATOR [address] [place] [address] PCP - General NURSE PRACTITIONER 04/21/24 Christiano Umaña MD [facility] [address] [place] [address] Consulting Physician CARDIOVASCULAR DISEASE 01/22/24 Mono Estrada MD [address] [facility] [address] [place] [address] NEUROLOGY 01/22/24 documented as of this encounter
--- OUTSIDE RECORDS SUMMARY | 2025-11-08 17:44 | XMS_ITS | Encounter Summary ---
Author Organization [facility] Address [facility] [place] [address] Care Team Providers Care Ore Crusher Name Role Phone Patti Langley INSPECTOR REPAIRER Primary Care Provider Unavaila ble Christiano Umaña MD Unavailable [phone] Mono Estrada MD Unavailable Janelle Del Real INSPECTOR REPAIRER Primary Care Provider Encounter Details Date Type Department Care Team (Late st Contact Info) Description 03/04/2023 Abstract [facility] [address] Enrique Colindres MA Social History Tobacco Use Types Packs/Day Years [...] Sex Assigned at Female 12/28/2024 3:21 PM PULL SOCKET ASSEMBLER Legal Sex Female 4:42 PM CDT Gender Identity Female 05/30/2025 11:35 AM CDT Sexual Orientation Not on file 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 No / Unsure 02/02/2023 12:40 PM CDT documented as of this encounter Plan of Treatment Upcoming Encounters Date Type Department Care Team (Late st Contact Info) Description 11/14/2025 12:40 PM PULL SOCKET ASSEMBLER Office Visit [facility] Medical Group Multispecialty Care - [place] [address] [place] [address] Janelle Del Real, INSPECTOR REPAIRER [address] [place] [address] 11/27/2025 12:00 PM PULL SOCKET ASSEMBLER Office Visit [facility] THREE [facility] [address] [place] [address] Christiano Umaña MD Three [facility] [address] [place] [address] 11/27/2025 2:00 PM PULL SOCKET ASSEMBLER Appointment [facility] Mammography [address] [place] [address] Janelle Del Real, INSPECTOR REPAIRER [address] [facility] [address] [place] [address] documented as of this encounter Procedures Procedure Name Priority Date/Time Associated Diagnosis Comments LIPID PANEL Routine 03/03/2023 documented in this encounter Results * LIPID PANEL (03/03/2023) CHOLESTEROL 137 HDL 47 TRIGLYCERIDES 114 LDL (CALCULATED) 69 03/03/2023 us Default History Genericprovider LABORATORY Final Result documented in this encounter Visit Diagnoses Not on filedocumented in this encounter Additional Health Concerns Assessment Noted Time PHQ-9 Depression Total Score: 5 01/16/20 19 1:27 PM PULL SOCKET ASSEMBLER documented as of this encounter Care Teams Ore Crusher Relationship Specialty Start Date End Date Patti Langley, INSPECTOR REPAIRER PCP - General NURSE PRACTITIONER 11/29/18 04/20/24 Janelle Del Real, INSPECTOR REPAIRER [address] [facility] [address] [place] [address] PCP - General NURSE PRACTITIONER 04/21/24 Christiano Umaña MD Three [facility] [address] [place] [address] Consulting Physician CARDIOVASCULAR DISEASE 01/22/24 Mono Estrada MD [address] [facility] [address] [place] [address] NEUROLOGY 01/22/24 documented as of this encounter
--- OUTSIDE RECORDS SUMMARY | 2025-11-08 17:44 | XMS_ITS | Encounter Summary ---
Author Organization [facility] Address [address] [place] [address] Care Team Providers Care Bulk Sausage Casing Tier Off Name Role Phone Patti Langley [facility] Primary Care Provider Unavaila Christiano Reynolds MD Unavailable [phone] Mono Estrada MD Unavailable Jaenlle Del Real [facility] Primary Care Provider Encounter Details Date Type Department Care Team (Late st Contact Info) Description 01/17/2022 nlighten Technologiest Message Enc [facility] Medical Group Family Medicine - [place] [address] [place] [address] Patti Langley, [facility] Labs Social History Tobacco Use Types Packs/Day Years Used Date Smoking Tobacco: Every Day Cigarettes 1 29 Smokeless Tobacco: Never Alcohol Use Standard Drinks/Week Comments Yes 15 (1 standard drink = 0.6 oz pu re alcohol) weekends AUDIT-C Answer Date Recorded Frequency [...] Sex Assigned at Female 12/28/2024 3:21 PM SHIPSMITH Legal Sex Female 4:42 PM CDT Gender [...] suspected to have Coronavirus/COVID-19? No / Unsure 01/17/2022 10:42 AM SHIPSMITH documented as of this encounter Progress Notes * Tom Kasper MA - 01/17/2022 11:01 AM CST Labs faxed to [facility] in [place]. SMITH documented in this encounter Plan of Treatment Upcoming Encounters Date Type Department Care Team (Late st Contact Info) Description 11/14/2025 12:40 PM SHIPSMITH Office Visit [facility] Medical Group Multispecialty Care - [place] [address] [place], [place] [phone] Janelle Del Real, [facility] [address] [facility] [address] [place] [address] 11/27/2025 12:00 PM SHIPSMITH Office Visit [facility] THREE [facility], [facility] [address] [place], [place] [id number] Christiano Umaña MD Three [facility] [address] [place] [address] 11/27/2025 2:00 PM SHIPSMITH Appointment [facility] Mammography [address] [place], [place] [phone] Janelle Del Real, [facility] [address] [place], [place] [address] documented as of this encounter Visit Diagnoses Not on filedocumented in this encounter Additional Health Concerns Assessment Noted Time PHQ-9 Depression Total Score: 5 12/08/19 19 1:27 PM SHIPSMITH documented as of this encounter Care Teams Bulk Sausage Casing Tier Off Relationship Specialty Start Date End Date Patti Langley [facility] PCP - General NURSE PRACTITIONER 1/7/19 5/29/24 Janelle Del Real NP [address] [facility] [address] [place] [address] PCP - General NURSE PRACTITIONER 04/21/24 Christiano Umaña MD Three [facility] [address] [place] [address] Consulting Physician CARDIOVASCULAR DISEASE 01/22/24 Mono Estrada MD [address] [facility] [address] [place] [address] NEUROLOGY 01/22/24 documented as of this encounter
--- OUTSIDE RECORDS SUMMARY | 2025-11-08 17:44 | XMS_ITS | Encounter Summary ---
Author Organization [facility] Address [address] [place] [address] Care Team Providers Care Acid Pump Operator Name Role Phone Patti Langley CO FOUNDER AND CHAIRMAN Primary Care Provider Unavaila Christiano Reynolds MD Unavailable Mono Estrada MD Unavailable Janelle Del Real CO FOUNDER AND CHAIRMAN Primary Care Provider [phone] Encounter Details Date Type Department Care Team (Late st Contact Info) Description 11/11/2021 Rotten Tomatoest Message Enc [facility] Group Family Medicine - [place] [address] [place] [address] Patti Langley, CO FOUNDER AND CHAIRMAN Sinus infection. Social History Tobacco Use Types Packs/Day Years [...] Sex Assigned at Female 12/28/2024 3:21 PM CRUISE GUIDE Legal Sex Female 4:42 PM CDT Gender [...] have Coronavirus / COVID-19? No / Unsure 10/23/2021 10:39 AM CRUISE GUIDE documented as of this encounter Progress Notes * Tom Kasper MA - 11/12/2021 8:01 AM CST Please advise. SE GUIDE documented in this encounter Plan of Treatment Upcoming Encounters Date Type Department Care Team (Late st Contact Info) Description 11/14/2025 12:40 PM CRUISE GUIDE Office Visit [facility] Medical Group Multispecialty Care - [place] [address] [place] [address] Janelle Del Real, TAY [address] [facility] [address] [place] [address] 11/27/2025 12:00 PM CRUISE GUIDE Office Visit [facility] THREE [facility] [address] [place] [address] Christiano Umaña MD Three [facility] [address] [place] [address] 11/27/2025 2:00 PM CRUISE GUIDE Appointment [facility] Mammography [address] [place] [address] Janelle Del Real, TAY [address] [facility] [address] [place] [address] documented as of this encounter Visit Diagnoses Diagnosis Acute maxillary sinusitis, recurrence not specified- Primary Screening mammogram for breast cancer documented in this encounter Additional Health Concerns Assessment Noted Time PHQ-9 Depression Total Score: 5 12/08/19 19 1:27 PM CRUISE GUIDE documented as of this encounter Care Teams Acid Pump Operator Relationship Specialty Start Date End Date Patti Langley NP PCP - General NURSE PRACTITIONER 11/29/18 04/20/24 Janelle Del Real NP [address] [facility] [address] [place] [address] PCP - General NURSE PRACTITIONER 04/21/24 Christiano Umaña MD Three [facility] [address] [place] [address] Consulting Physician CARDIOVASCULAR DISEASE 01/22/24 Mono Estrada MD [address] [facility] [address], [place] [address] NEUROLOGY 01/22/24 documented as of this encounter
--- OUTSIDE RECORDS SUMMARY | 2025-11-08 17:44 | XMS_ITS | Clinical Summary ---
Author Organization [facility] B Address [address] [place] [address] Care Team Providers Care Electric Shaver Mechanic Name Role Phone Janelle Del Real NP Primary Care Provider [phone] Allergies No known active allergies Medications ibuprofen (ibuprofen) 200 mg tab/cap take 1 capsule (200MG) by oral route every 6 hours as needed 0 04/02/2012 Active cholecalciferol (VITAMIN D-3) 4,000 unit capsule 1 capsule (4,000 Units total) daily Active m-vit,min 95-zupi-kkuol acid 60 mg iron-1 mg tablet Take 60 mg by mouth daily. Active esomeprazole magnesium (NEXIUM ORAL) Take by mouth Ac tive atorvastatin (LIPITOR) 20 mg tablet Take 1 tablet (20 mg total) by mouth daily 2 tab s daily 05/19/2022 Active semaglutide (Ozempic) 1 mg/dose (4 mg/3 mL) pen injector injection Inject 5 mg under the skin once a week 05/19/2022 Active ALPRAZolam (XANAX) 0.25 mg tablet Take 1 tablet (0.25 mg total) by mouth every 12 (twelve) hours as needed for anxiety 60 tablet 06/09/2022 Active amLODIPine (NORVASC) 5 mg tablet Take 1 tablet (5 mg total) by mouth daily 03/21/2024 Active aspirin 81 mg chewable tablet Take 1 tablet (81 mg total) by mouth daily 03/21/2024 Active metoprolol XL (TOPROL-XL) 50 mg extended release tablet Take 1 tablet (50 mg total) by mouth daily 01/14/2024 Active rOPINIRole (REQUIP) 0.5 mg tabletIndicatio ns:Restless leg syndrome TAKE 1 TABLET BY MOUTH EVERY NIGHT NEEDED FOR RESTLESS LEGS 90 tablet 3 07/08/[address] (CYMBALTA) 60 mg capsuleIndicati ons:Multiple sclerosis TAKE 1 CAPSULE BY MOUTH TWICE DAILY 60 capsule 5 09/05/2024 Active gabapentin (NEURONTIN) 300 mg capsule TAKE 1 CAPSULE BY MOUTH 3 TIMES DAILY 270 capsule 3 09/09/2024 Active traZODone (DESYREL) 50 mg tabletIndicatio ns:Multiple sclerosis TAKE 1 TABLET BY MOUTH AT NIGHT NEEDED FOR SLEEP 30 tablet 5 01/23/2025 Active fingolimod (GILENYA) 0.5 mg capsuleIndicati ons:Multiple sclerosis TAKE 1 CAPSULE BY MOUTH DAILY 30 capsule 5 06/15/2025 Active Active Problems Problem Noted Date Diagnosed Date Essential hypertension 03/21/2024 Type 2 diabetes mellitus wit hout complication, without long-term current use of insulin 03/13/2022 History of COVID-19 11/01/2021 Assessment & Plan (03/24/2024 8:16 AM CDT): Tested positive on PCR October 2021 Symptoms included nasal congestion, sneezing, achiness, fatigue and mild cough without shortness of breath or fever. Assessment & Plan (06/18/2023 7:18 AM CDT): Tested positive on PCR October 2021 Symptoms included nasal congestion, sneezing, achiness, fatigue and mild cough without shortness of breath or fever. Assessment & Plan (05/29/2022 8:42 PM CDT): Tested positive on PCR October 2021 Symptoms included nasal congestion, sneezing, achiness, fatigue and mild cough without shortness of breath or fever. Bilateral carpal tunnel syndrome 08/01/2018 Assessment & Plan (03/24/2024 8:15 AM CDT): EMG/NCS December 01, 2013: Mild involving bilateral carpal tunnel syndrome. 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 Bilateral wrist splints as needed. Option of surgical treatment previously discussed. Assessment & Plan (06/18/2023 7:16 AM CDT): EMG/NCS December 01, 2013: Mild involving bilateral carpal tunnel syndrome. 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 Bilateral wrist splints as needed. Option of surgical treatment discussed. Assessment & Plan (05/29/2022 8:43 PM CDT): EMG/NCS December 01, 2013: Mild involving bilateral carpal tunnel syndrome. 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 Bilateral wrist splints as needed. Option of surgical treatment discussed. Assessment & Plan (11/01/2021 7:31 AM ENVIRONMENTAL SPECIALIST): EMG/NCS December 01, 2013: Mild involving bilateral carpal tunnel syndrome. 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 Bilateral wrist splints. Option of surgical treatment discussed. Repeat EMG/NCS already ordered. Assessment & Plan (01/23/2021 5:20 PM ENVIRONMENTAL SPECIALIST): EMG/NCS December 01, 2013: Mild involving bilateral carpal tunnel syndrome. 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 Will repeat study at [facility] Bilateral wrist splints. Option of surgical treatment discussed. Assessment & Plan (04/12/2020 8:18 AM CDT): Need EMG/NCS report Patient declined surgery for now Assessment & Plan (08/01/2018 12:41 PM CDT): Need EMG/NCS report Referral to Dr. Byron Cabello Primary insomnia 08/01/2018 Assessment & Plan (03/24/2024 8:16 AM CDT): Trazodone 50 mg at night Assessment & Plan (06/18/2023 7:17 AM CDT): Trazodone 50 mg at night Assessment & Plan (05/29/2022 8:39 PM CDT): Temazepam at night as needed Assessment & Plan (11/01/2021 7:30 AM ENVIRONMENTAL SPECIALIST): Temazepam qhs prn Assessment & Plan (01/23/2021 5:24 PM ENVIRONMENTAL SPECIALIST): Temazepam qhs prn Assessment & Plan (04/12/2020 8:19 AM CDT): Temazepam qhs prn Assessment & Plan (08/01/2018 12:41 PM CDT): Temazepam qhs prn Restless leg syndrome 08/01/2018 Assessment & Plan (03/24/2024 8:15 AM CDT): On iron supplementation Gabapentin 300 mg twice a day Ropinrole 0.5 mg at bedtime if needed. Risks discussed including excessive gambling or shopping. Assessment & Plan (06/18/2023 7:17 AM CDT): Ropinrole 0.5 mg at bedtime if needed. Risks discussed including excessive gambling or shopping. Assessment & Plan (05/29/2022 8:42 PM CDT): Ropinrole 0.5 mg at bedtime. Risks discussed including excessive gambling or shopping. Assessment & Plan (11/01/2021 7:30 AM ENVIRONMENTAL SPECIALIST): Restart ropinrole 0.25-0.5 mg every 8 hours as needed Assessment & Plan (01/23/2021 5:24 PM ENVIRONMENTAL SPECIALIST): Restart ropinrole 0.25-0.5 mg every 8 hours as needed Assessment & Plan (04/12/2020 8:20 AM CDT): Restart ropinrole 0.25-0.5 mg every 8 hours as needed Assessment & Plan (08/01/2018 12:41 PM CDT): Temazepam qhs prn Anxiety and depression 08/01/2018 Assessment & Plan (03/24/2024 8:15 AM CDT): Duloxetine 60 mg twice a day Rarely taking alprazolam 0.25 mg Assessment & Plan (06/18/2023 7:17 AM CDT): Duloxetine 60 mg twice a day Rarely taking alprazolam 0.25 mg Assessment & Plan (05/29/2022 8:39 PM CDT): Duloxetine 60 mg twice a day Add alprazolam 0.25 mg every 12 hours as needed. Addictive potential discussed. Not to be mixed with temazepam. Assessment & Plan (11/01/2021 7:25 AM ENVIRONMENTAL SPECIALIST): Cymbalta 60 mg BID Assessment & Plan (01/23/2021 5:25 PM ENVIRONMENTAL SPECIALIST): Cymbalta 60 mg BID Assessment & Plan (04/12/2020 8:19 AM CDT): Cymbalta 60 mg BID Assessment & Plan (08/01/2018 12:40 PM CDT): Cymbalta 60 mg BID Multiple sclerosis ([facility]) 04/08/2014 Overview (11/01/2021): MULTIPLE SCLEROSIS DMT history Copaxone 2007-02/2011 Rebif 02/2011-11/2014, injection fatigue and arm numbness Gilenya 12/04/2014- Assessment & Plan (03/24/2024 8:17 AM CDT): Mild intracranial white matter disease including periventricular and juxtacortical white matter. Dorsal T9 T2-hyperintense lesion. On 03/19/24, left face movement diminished for 5 minutes without actual facial droop. May be related to multiple sclerosis. Not overly convincing for TIA. Already on aspirin 81 mg and atorvastatin 20 mg daily. MRI brain ordered for today. Fingolimod 0.5 mg daily. Risks discussed with patient including skin cancer and serious infections including cryptococcal meningitis and PML. Interaction with metoprolol XL explained. Increased risk of serious complications including pneumonia and possibly if she develops COVID-19 reinfection discussed. Last COVID-19 vaccine December 29, 2022. Another booster vaccine recommended. She understands that gold mod may reduce the efficacy a COVID-19 vaccine and potentially she may not be protected. Paxlovid advised if she develops COVID-19 again. Exercise Smoking cessation strongly advised to prevent worsening cognitive and physical disability. Vitamin D3 5000 IU daily Postmenopausal. Assessment & Plan (06/18/2023 7:15 AM CDT): Mild intracranial white matter disease including periventricular and juxtacortical white matter. Dorsal T9 T2-hyperintense lesion. Gilenya (fingolimod) 0.5 mg daily. Risks discussed with patient including skin cancer, cryptococcal meningitis and PML. Increased risk of serious complications including pneumonia and possibly if develops COVID-19 reinfection discussed. Last COVID-19 vaccine December 29, 2022. She understands that Gilenya may reduce the efficacy a COVID-19 vaccine and potentially she may not be protected. Paxlovid advised if she develops COVID-19 again. Exercise Smoking cessation strongly advised to prevent worsening cognitive and physical disability. Vitamin D3 5000 IU daily Assessment & Plan (05/29/2022 8:45 PM CDT): Gilenya. Risks discussed with patient including skin cancer, cryptococcal meningitis and PML. Increased risk of serious complications including pneumonia and possibly if develops COVID-19 reinfection discussed. She received her 2nd Moderna COVID-19 vaccine on February 20, 2021. A booster vaccination was recommended. She understands that Gilenya may reduce the efficacy a COVID-19 vaccine and potentially she may not be protected. Exercise Smoking cessation strongly recommended since still smoking 1 pack per day; risk of worsening disability discussed. Vitamin D3 5000 IU daily Assessment & Plan (11/01/2021 7:36 AM ENVIRONMENTAL SPECIALIST): Gilenya. Risks discussed with patient including cryptococcal meningitis and PML. Increased risk of serious complications if develops coronavirus infection (COVID-19) discussed including pneumonia and possible reviewed. Patient wants to continue Gilenya. She received her 2nd Moderna COVID-19 vaccine on February 20, 2021. She understands that Gilenya may reduce the efficacy a COVID-19 vaccine and potentially she may not be protected. Exercise Smoking cessation strongly recommended since still smoking 1 pack per day; risk of worsening disability discussed. Vitamin D3 5000 IU daily MRI imaging from [facility] requested. MRI brain with contrast April 2022 Assessment & Plan (01/23/2021 5:19 PM ENVIRONMENTAL SPECIALIST): Jose. Risks discussed with patient and including cryptococcal meningitis and PML. Increased risk of serious complications if develops coronavirus infection (COVID-19) discussed including pneumonia and possible reviewed. Patient wants to continue Gilenya. Social distancing discussed to prevent COVID-19 infection. Scheduled for the 1st COVID-19 vaccine this weekend. She understands that Gilenya may reduce the efficacy a COVID-19 vaccine and potentially she may not be protected. MRI cervical spine normal per my review Oct 2015. Exercise Smoking cessation; risk of worsening disability discussed. Restart vitamin D3 5000 IU daily Assessment & Plan (04/12/2020 8:17 AM CDT): Jose. Risks discussed with patient and including cryptococcal meningitis and PML (28 cases). Increased risk of serious complications if develops coronavirus infection (COVID-19) discussed including pneumonia and possible reviewed. Patient wants to continue Gilenya. Social distancing discussed to prevent COVID- 19 infection. MRI scan of the brain ordered; [facility] MRI Access Fund application discussed. MRI brain with contrast not performed in 2018 as ordered. Last MRI scan of the brain October 2015 (loaded into the [facility]). MRI cervical spine normal per my review Oct 2015. Adherence emphasized to maximize safety improve disease monitoring. Her last office visit was July 2018 and last labs August 2018. Exercise Smoking cessation; risk of worsening disability discussed. Restart vitamin D3 5000 IU daily Assessment & Plan (08/01/2018 12:42 PM CDT): Jose. Risks discussed with patient and including cryptococcal meningitis and PML (21 cases). Pt wants to continue. [facility] MRI Access Fund application: MRI brain with contrast. MRI cervical spine normal Oct 2015. Exercise Smoking cessation; risk of worsening disability discussed. Encounters Date Type Department Care Team Description 10/26/2025 Telephone [facility] [address] [place] [address] Singler, Kirstin Ritchie [facility] from Last 3 Months Immunizations Immunization Administration Dates Next Due Influenza, Unspecified 12/29/2022 Tdap 08/24/2015 Medical History Medical History Date Comments Covid 11/01/2021 Family History Medical History Relation Name Comments Lung cancer Father Cancer -lung; Stroke Mother Stroke; Relation Name Status Comments Father Mother Social History Tobacco Use Types Packs/Day Years Used Date Smoking Tobacco: Every Day Smokeless Tobacco: Never Tobacco Cessation:Ready to Q uit: Not Asked; Counseling Given: Not Answered Alcohol Use Standard Drinks/Week Comments Yes 0 (1 standard drink = 0.6 oz pur e alcohol) weekends AUDIT-C Answer Date Recorded Q1: How often do you have a drink containing alc ohol? Monthly or less 01/23/2021 Average Number of Drinks Not on file Frequency of Binge Drinking Not on file 01/2021 Comments Unknown Sex and Gender Information Value Date Recorded Sex Assigned at Not on file Legal Sex Female 12:19 PM ENVIRONMENTAL SPECIALIST Gender Identity Not on file Sexual Orientation Not on file Last Filed Vital Signs Vital Sign Reading Time Taken Comments Blood Pressure 106/68 01/17/2025 2:04 PM ENVIRONMENTAL SPECIALIST Pulse 82 01/17/2025 2:04 PM ENVIRONMENTAL SPECIALIST Temperature 36.3 C (97.4 F) 01/17/2025 2:04 PM ENVIRONMENTAL SPECIALIST Respiratory Rate 16 07/30/2018 10:0 7 AM CDT Oxygen Saturation 99% 01/17/2025 2:04 PM ENVIRONMENTAL SPECIALIST Inhaled Oxygen Concentration - - Weight 89.8 kg (197 lb 14.4 oz) 01/17/2025 2:04 PM ENVIRONMENTAL SPECIALIST Height 167.6 cm (5' 6) 01/17/2025 2:04 PM ENVIRONMENTAL SPECIALIST Body Mass Index 31.94 01/17/2025 2:04 PM ENVIRONMENTAL SPECIALIST Plan of Treatment Health Maintenance Due Date Last Done Comments Albumin Creatinine Ratio, Urine 1976 Breast Cancer Screening-Mammogram 1976 Cervical Cancer Screening 1976 Colon Cancer Screening-Colonoscopy 1976 Depression Screening 1976 Hepatitis C Screening 1976 Dilated Eye Exam 1976 Foot Exam 1976 Hepatitis B Screening 1994 Regular Well Visit/Exam 18-64 1994 Pneumococcal vaccine <65 (1 of 2 - PCV) 1995 Hemoglobin A1C 03/25/2018 09/25/2017 eGFR 01/20/2024 01/20/2023, 09/22/2018 Lipid Panel 03/20/2025 03/20/2024, 05/15/2022 Covid-19 Vaccine ( season) 2025 12/29/2022, 02/20/2021, 01/24/2021 Influenza Vaccine (#1) 2025 12/29/2022 DTaP/Tdap/Td Vaccine (2 - Td or Tdap) 08/24/202512/2014 Procedures Procedure Name Priority Date/Time Associated Diagnosis Comments COMPREHENSIVE METABOLIC PANEL Routine 01/20/2023 11:22 AM ENVIRONMENTAL SPECIALIST HEMOGLOBIN A1C Routine 09/25/2017 10:39 AM CDT from Last 3 Months or Most Recently Relevant to Health Maintenance Results * (ABNORMAL) Comprehensive metabolic panel (01/20/2023 11:22 AM ENVIRONMENTAL SPECIALIST) Glucose 103(H) 70 - 99 mg/dL [facility] - 01 BUN 10 6 - 24 mg/dL [facility] - 01 Creatinine, Serum 0.77 0.57 - 1.00 mg/dL [facility] - 01 eGFR 96 >59 mL/min/1.7 3 [facility] - 01 BUN/creat ratio 13 9 - 23 [facility] - 01 Sodium 142 134 - 144 mmol/L [facility] - 01 Potassium, sr 4.4 3.5 - 5.2 mmol/L [facility] - 01 Chloride 103 96 - 106 mmol/L [facility] - 01 CO2 26 20 - 29 mmol/L [facility] - 01 Calcium 9.3 8.7 - 10.2 mg/dL [facility] - 01 Protein, sr 6.6 6.0 - 8.5 g/dL [facility] - 01 Albumin 4.4 3.8 - 4.8 g/dL [facility] - 01 Globulin, Total 2.2 1.5 - 4.5 g/dL [facility] - 01 A/G Ratio 2.0 1.2 - 2.2 [facility] - 01 Bilirubin, Total 0.3 0.0 - 1.2 mg/dL [facility] - 01 Alk phos 139(H) 44 - 121 IU/L [facility] - 01 AST 16 0 - 40 IU/L [facility] - 01 ALT 21 0 - 32 IU/L [facility] - 01 01/20/2023 11:2 2 AM ENVIRONMENTAL SPECIALIST 01/20/2023 Narrative [facility] - 01/21/2023 1:06 AM ENVIRONMENTAL SPECIALIST Performed at: [address] [id number] Ecology Teacher: Sreedhar Boyle PhD, Phone: [phone] us Quinn Soriano PA LAB BLOOD ORDERABLES Final Resu lt Performing Organization Address [facility] Co de Phone Number [facility] - * (ABNORMAL) Hemoglobin A1c (09/25/2017 10:39 AM CDT) [facility] Hgb A1C 6.1(H) 4.8 - 5.6 % [facility] - 01 Comment: Pre-diabetes: 5.7 - 6.4 Diabetes: >6.4 Glycemic control for adults with diabetes: <7.0 09/25/2017 10:3 9 AM CDT 09/25/2017 Narrative [facility] - 09/26/2017 6:12 AM CDT Performed at: [address] [id number] Ecology Teacher: Sreedhar Boyle PhD, Phone: [phone] us Kay Martinez NP LAB BLOOD ORDERABLES Final Resul t Performing Organization Address [facility] Co de Phone Number [facility] - from Last 3 Months or Most Recently Relevant to Health Maintenance Insurance [facility] CHOICE PLUS [facility] CHOICE PLUS MEDICARE Care Teams Electric Shaver Mechanic Relationship Specialty Start Date End Date Janelle Del Real NP [address] [place] [address] PCP - General Internal Medicine 01/17/25
--- OUTSIDE RECORDS SUMMARY | 2025-11-08 17:44 | XMS_ITS | Encounter Summary ---
Author Organization [facility] Address [address] [place] [address] Care Team Providers Care Corridor Redevelopment Manager Name Role Phone Patti Langley RESAW OPERATOR Primary Care Provider Unavaila ble Christiano Umaña MD Unavailable [phone] Mono Estrada MD Unavailable Janelle Del Real RESAW OPERATOR Primary Care Provider Encounter Details Date Type Department Care Team (Late st Contact Info) Description 11/25/2021 Integrated Medical Management Message Enc [facility] Medical Group Family Medicine - [facility] [address] [place] [address] Ivan, [facility] Provider Abdominal pain Social History Tobacco Use Types Packs/Day [...] Sex Assigned at Female 12/28/2024 3:21 PM JUNIOR WEB DESIGNER Legal Sex Female 4:42 PM CDT Gender [...] have Coronavirus / COVID-19? No / Unsure 11/27/2021 6:29 PM JUNIOR WEB DESIGNER documented as of this encounter Plan of Treatment Upcoming Encounters Date Type Department Care Team (Late st Contact Info) Description 11/14/2025 12:40 PM JUNIOR WEB DESIGNER Office Visit [facility] Medical Group Multispecialty [facility] [place] [address] [place] [address] Janelle Del Real, RESAW OPERATOR [address] [place] [address] 11/27/2025 12:00 PM JUNIOR WEB DESIGNER Office Visit [facility] [address] [facility] [address] [place] [address] Christiano Umaña MD Three [facility] [address] [place] [address] 11/27/2025 2:00 PM JUNIOR WEB DESIGNER Appointment [facility] [address] [place], [place] [id number] Janelle Del Real, RESAW OPERATOR [address] [place] [address] documented as of this encounter Visit Diagnoses Not on filedocumented in this encounter Additional Health Concerns Assessment Noted Time PHQ-9 Depression Total Score: 5 12/08/19 19 1:27 PM JUNIOR WEB DESIGNER documented as of this encounter Care Teams Corridor Redevelopment Manager Relationship Specialty Start Date End Date Patti Langley NP PCP - General NURSE PRACTITIONER 11/29/18 04/20/24 Janelle Del Real, RESAW OPERATOR [address] [place] [address] PCP - General NURSE PRACTITIONER 04/21/24 Christiano Umaña MD [facility] [address] [place] [address] Consulting Physician CARDIOVASCULAR DISEASE 01/22/24 Mono Estrada MD [address] [facility] [address], [place] [address] NEUROLOGY 01/22/24 documented as of this encounter
--- OUTSIDE RECORDS SUMMARY | 2025-11-08 17:44 | XMS_ITS | Encounter Summary ---
Author Organization [facility] Address [address] [place] [address] Care Team Providers Care Quiller Runner Name Role Phone Patti Langley MECHANICAL ENGINEERING LECTURER Primary Care Provider Unavaila Christiano Reynolds MD Unavailable [phone] Mono Estrada MD Unavailable Janelle Del Real MECHANICAL ENGINEERING LECTURER Primary Care Provider Encounter Details Date Type Department Care Team (Late st Contact Info) Description 03/07/2022 [employer] Message Enc [facility] Medical [facility] Family Medicine - [place] [address] [place] [address] Patti Langley, MECHANICAL ENGINEERING LECTURER Follow up Social History Tobacco Use Types Packs/Day Years [...] Sex Assigned at Female 12/28/2024 3:21 PM PIPING SUPERVISOR Legal Sex Female 4:42 PM CDT Gender [...] suspected to have Coronavirus/COVID-19? No / Unsure 03/09/2022 6:19 PM CDT documented as of this encounter Progress Notes * Rosalino Sen - 03/07/2022 2:17 PM CDT Spoke to pt, schedule an appt for her on Thursday03/11/2022 at 1 pm * Tom Kasper MA - 03/07/2022 2:04 PM CDT Please call and schedule pt. documented in this encounter Plan of Treatment Upcoming Encounters Date Type Department Care Team (Late st Contact Info) Description 11/14/2025 12:40 PM PIPING SUPERVISOR Office Visit [facility] Medical [facility] Multispecialty Care - [place] [address] [place] [address] Janelle Del Real, MECHANICAL ENGINEERING LECTURER [address] [place] [address] 11/27/2025 12:00 PM PIPING SUPERVISOR Office Visit [facility] [address] [facility] [place] [address] Christiano Umaña MD [address] [facility] [address] [place] [address] 11/27/2025 2:00 PM PIPING SUPERVISOR Appointment [facility] [address] [place], [place] [address] Janelle Del Real, MECHANICAL ENGINEERING LECTURER [address] [place] [address] documented as of this encounter Visit Diagnoses Not on filedocumented in this encounter Additional Health Concerns Assessment Noted Time PHQ-9 Depression Total Score: 5 12/08/19 19 1:27 PM PIPING SUPERVISOR documented as of this encounter Care Teams Quiller Runner Relationship Specialty Start Date End Date Patti Langley, MECHANICAL ENGINEERING LECTURER PCP - General NURSE PRACTITIONER 11/29/18 04/20/24 Janelle Del Real, MECHANICAL ENGINEERING LECTURER [facility] [facility] [address] [place] [address] PCP - General NURSE PRACTITIONER 04/21/24 Christiano Umaña MD [address] [facility] [address] [place] [address] Consulting Physician CARDIOVASCULAR DISEASE 01/22/24 Mono Estrada MD [address] [facility] [address] [place] [address] NEUROLOGY 01/22/24 documented as of this encounter
--- OUTSIDE RECORDS SUMMARY | 2025-11-08 17:44 | XMS_ITS | Encounter Summary ---
Author Organization [facility] Address [address] [place] [address] Care Team Providers Care Informatics Physician Liaison Name Role Phone Patti Langley YARN TWISTER Primary Care Provider Unavaila Christiano Reynolds MD Unavailable [phone] Mono Estrada MD Unavailable Janelle Del Real YARN TWISTER Primary Care Provider Encounter Details Date Type Department Care Team (Late st Contact Info) Description 07/26/2021 Darberryt Message Enc [facility] Medical Group Family Medicine - [place] 5 [place] [address] Patti Langley, YARN TWISTER RE: Question Social History Tobacco Use Types Packs/Day Years [...] Sex Assigned at Female 12/28/2024 3:21 PM BULK LOADER Legal Sex Female 4:42 PM CDT Gender [...] have Coronavirus / COVID-19? No / Unsure 07/19/2021 2:52 PM CDT documented as of this encounter Progress Notes * Juan Jones RN - 07/26/2021 9:14 AM CDT Please advise. Thanks! documented in this encounter Plan of Treatment Upcoming Encounters Date Type Department Care Team (Late st Contact Info) Description 11/14/2025 12:40 PM BULK LOADER Office Visit [facility] Medical Group Multispecialty Care - [place] [address] [place] [address] Janelle Del Real, YARN TWISTER [address] [place] [address] 11/27/2025 12:00 PM BULK LOADER Office Visit [facility] THREE [facility] [place] [address] Christiano Umaña MD Three [facility] [address] [place] [address] 11/27/2025 2:00 PM BULK LOADER Appointment [facility] Mammography [address] [place], [place] [address] Janelle Del Real, YARN TWISTER [address] [facility] [address] [place], [place] [address] documented as of this encounter Visit Diagnoses Not on filedocumented in this encounter Additional Health Concerns Assessment Noted Time PHQ-9 Depression Total Score: 5 12/08/19 19 1:27 PM BULK LOADER documented as of this encounter Care Teams Informatics Physician Liaison Relationship Specialty Start Date End Date Patti Langley YARN TWISTER PCP - General NURSE PRACTITIONER 11/29/18 04/20/24 Janelle Del Real NP [address] [facility] [address] [place] [address] PCP - General NURSE PRACTITIONER 04/21/24 Christiano Umaña MD Three [facility] [address] [place] [address] Consulting Physician CARDIOVASCULAR DISEASE 01/22/24 Mono Estrada MD [address] [facility] [address] [place] [address] NEUROLOGY 01/22/24 documented as of this encounter
--- OUTSIDE RECORDS SUMMARY | 2025-11-08 17:44 | XMS_ITS | Encounter Summary ---
Author Organization [facility] Address [address] [place] [address] Care Team Providers Care Carpet Floor Layer Apprentice Name Role Phone Patti Langley DISPENSING AUDIOLOGIST Primary Care Provider Unavaila Christiano Reynolds MD Unavailable [phone] Mono Estrada MD Unavailable Janelle Del Real DISPENSING AUDIOLOGIST Primary Care Provider Encounter Details Date Type Department Care Team (Late st Contact Info) Description 04/08/2022 ARTtwo50t Message Enc [facility] Medical Group Family Medicine - [place] 5 [place] [address] Patti Langley, DISPENSING AUDIOLOGIST Shoulder pain Social History Tobacco Use Types Packs/Day [...] Sex Assigned at Female 12/28/2024 3:21 PM ELECTRONIC COMPONENT PROCESSOR Legal Sex Female 4:42 PM CDT Gender [...] suspected to have Coronavirus/COVID-19? No / Unsure 03/11/2022 12:52 PM CDT documented as of this encounter Progress Notes * Juan Jones RN - 04/08/2022 10:25 AM CDT Please advise. Thanks documented in this encounter Plan of Treatment Upcoming Encounters Date Type Department Care Team (Late st Contact Info) Description 11/14/2025 12:40 PM ELECTRONIC COMPONENT PROCESSOR Office Visit [facility] Medical Group Multispecialty Care - [place] [address] [place], [place] [address] Janelle Del Real, DISPENSING AUDIOLOGIST [address] [place] [address] 11/27/2025 12:00 PM ELECTRONIC COMPONENT PROCESSOR Office Visit [facility], [address] [place] [address] Christiano Umaña MD Three [facility] [address] [place], [place] [address] 11/27/2025 2:00 PM ELECTRONIC COMPONENT PROCESSOR Appointment [facility] Mammography [address] [place], [place] [address] Janelle Del Real, DISPENSING AUDIOLOGIST [address] [place], [place] [address] documented as of this encounter Visit Diagnoses Not on filedocumented in this encounter Additional Health Concerns Assessment Noted Time PHQ-9 Depression Total Score: 5 12/08/19 19 1:27 PM ELECTRONIC COMPONENT PROCESSOR documented as of this encounter Care Teams Carpet Floor Layer Apprentice Relationship Specialty Start Date End Date Patti Langley DISPENSING AUDIOLOGIST PCP - General NURSE PRACTITIONER 11/29/18 04/20/24 Janelle Del Real NP [address] [facility] [address] [place] [address] PCP - General NURSE PRACTITIONER 04/21/24 Christiano Umaña MD Three [facility] [address] [place] [address] Consulting Physician CARDIOVASCULAR DISEASE 01/22/24 Mono Estrada MD [address] [facility] [address] [place] [address] NEUROLOGY 01/22/24 documented as of this encounter
--- OUTSIDE RECORDS SUMMARY | 2025-11-08 17:44 | XMS_ITS | Encounter Summary ---
Author Organization [facility] Address [address] [place] [address] Care Team Providers Care Personal Financial Counselor Name Role Phone Patti Langley RESTROOMS OR LOUNGES MAID Primary Care Provider Unavaila ble Christiano Umaña MD Unavailable [phone] Mono Estrada MD Unavailable Janelle Del Real RESTROOMS OR LOUNGES MAID Primary Care Provider Encounter Details Date Type Department Care Team (Late st Contact Info) Description 01/21/2022 PURE Bioscience Message Enc [facility] Medical Group Family Medicine - [place] 5 [place] [address] Mychart, [facility] Provider Meds and referral Social History Tobacco Use Types Packs/Day Years [...] Sex Assigned at Female 12/28/2024 3:21 PM CALIBRATION TESTER Legal Sex Female 4:42 PM CDT Gender Identity Female 05/30/2025 11:35 AM CDT Sexual Orientation Not on file 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 No / Unsure 01/17/2022 10:42 AM CALIBRATION TESTER documented as of this encounter Plan of Treatment Upcoming Encounters Date Type Department Care Team (Late st Contact Info) Description 11/14/2025 12:40 PM CALIBRATION TESTER Office Visit [facility] Medical Group Multispecialty Care - [place] [address] [place] [address] Janelle Del Real, RESTROOMS OR LOUNGES MAID [address] [place] [address] 11/27/2025 12:00 PM CALIBRATION TESTER Office Visit [facility] THREE [facility] [address] [place] [address] Christiano Umaña MD Three [facility] [address] [place] [address] 11/27/2025 2:00 PM CALIBRATION TESTER Appointment [facility] Mammography [address] [place] [address] Janelle Del Real, RESTROOMS OR LOUNGES MAID [address] [facility] [address] [place] [address] documented as of this encounter Visit Diagnoses Not on filedocumented in this encounter Additional Health Concerns Assessment Noted Time PHQ-9 Depression Total Score: 5 12/08/19 19 1:27 PM CALIBRATION TESTER documented as of this encounter Care Teams Personal Financial Counselor Relationship Specialty Start Date End Date Patti Langley NP PCP - General NURSE PRACTITIONER 11/29/18 04/20/24 Janelle Del Real, RESTROOMS OR LOUNGES MAID [address] [place] [address] PCP - General NURSE PRACTITIONER 04/21/24 Christiano Umaña MD [facility] [address] [facility] [place] [address] Consulting Physician CARDIOVASCULAR DISEASE 01/22/24 Mono Estrada MD [address] [facility] [address] [place] [address] NEUROLOGY 01/22/24 documented as of this encounter
--- OUTSIDE RECORDS SUMMARY | 2025-11-08 17:44 | XMS_ITS | Encounter Summary ---
Author Organization [facility] Address [address] [place] [address] Care Team Providers Care Mobility Architect Name Role Phone Patti Langley CYBER OPS PLANNER Primary Care Provider Unavaila Christiano Reynolds MD Unavailable [phone] Mono Estrada MD Unavailable Janelle Del Real CYBER OPS PLANNER Primary Care Provider Encounter Details Date Type Department Care Team (Late st Contact Info) Description 10/23/2021 Digital Perceptiont Message Enc [facility] Medical Group Family Medicine - [place] 5 [place] [address] Patti Langley, CYBER OPS PLANNER Antibiotic request Social History Tobacco Use Types Packs/Day Years [...] Sex Assigned at Female 12/28/2024 3:21 PM PIANO TECHNICIAN Legal Sex Female 4:42 PM CDT Gender [...] COVID-19? No / Unsure 10/23/2021 10:39 AM PIANO TECHNICIAN documented as of this encounter Progress Notes * Tom Kasper MA - 10/23/2021 12:49 PM CST Spoke tpo pt and she was scheduled for appt today with Patti. O TECHNICIAN * Patti Langley NP - 10/23/2021 9:35 AM CST Please put her on for a video visit. O TECHNICIAN * Tom Kasper MA - 10/23/2021 8:09 AM CST Please advise. O TECHNICIAN documented in this encounter Plan of Treatment Upcoming Encounters Date Type Department Care Team (Late st Contact Info) Description 11/14/2025 12:40 PM PIANO TECHNICIAN Office Visit [facility] Medical Group Multispecialty Care - [place] [address] [place] [address] Janelle Del Real CYBER OPS PLANNER [address] [place] [address] 11/27/2025 12:00 PM PIANO TECHNICIAN Office Visit [facility] THREE [facility], [address] [place], [place] [address] Christiano Umaña MD Three [facility] [address] [place], [place] [address] 11/27/2025 2:00 PM PIANO TECHNICIAN Appointment [facility] Mammography [address] [facility] [address] [place], [place] [address] Janelle Del Real, CYBER OPS PLANNER [address] [facility] [address] [place] [address] documented as of this encounter Visit Diagnoses Not on filedocumented in this encounter Additional Health Concerns Assessment Noted Time PHQ-9 Depression Total Score: 5 12/08/19 19 1:27 PM PIANO TECHNICIAN documented as of this encounter Care Teams Mobility Architect Relationship Specialty Start Date End Date Patti Langley, CYBER OPS PLANNER PCP - General NURSE PRACTITIONER 11/29/18 04/20/24 Janelel Del Real, CYBER OPS PLANNER [address] [facility] [address] [place] [address] PCP - General NURSE PRACTITIONER 04/21/24 Christiano Umaña MD [address] [facility] [address] [place] [address] Consulting Physician CARDIOVASCULAR DISEASE 01/22/24 Mono Estrada MD [address] [address] NEUROLOGY 01/22/24 documented as of this encounter
--- OUTSIDE RECORDS SUMMARY | 2025-11-08 17:44 | XMS_ITS | Encounter Summary ---
Author Organization [facility] Address [address] [place] [address] Care Team Providers Care Car Scrubber Name Role Phone Patti Langley DIGITAL COMMENTATOR Primary Care Provider Unavaila Christiano Reynolds MD Unavailable [phone] Mono Estraad MD Unavailable Janelle Del Real DIGITAL COMMENTATOR Primary Care Provider Encounter Details Date Type Department Care Team (Late st Contact Info) Description 07/04/2021 HomeCont Message Enc [facility] Medical Group Family Medicine - [place] 5 [place] [address] Patti Langley, DIGITAL COMMENTATOR RE: FW: Question Social History Tobacco Use Types Packs/Day [...] Sex Assigned at Female 12/28/2024 3:21 PM MOLDER OFFBEARER Legal Sex Female 4:42 PM CDT Gender [...] have Coronavirus / COVID-19? No / Unsure 06/24/2021 12:54 PM CDT documented as of this encounter Progress Notes * Juan Jones RN - 07/04/2021 2:42 PM CDT Please advise. Thanks! documented in this encounter Plan of Treatment Upcoming Encounters Date Type Department Care Team (Late st Contact Info) Description 11/14/2025 12:40 PM MOLDER OFFBEARER Office Visit [facility] Medical Group Multispecialty Care - [place] [address] [place], [place] [address] Janelle Del Real, DIGITAL COMMENTATOR [address] [place] [address] 11/27/2025 12:00 PM MOLDER OFFBEARER Office Visit [facility] THREE [facility] [address] [place], [place] [address] Christiano Umaña MD Three [facility] [address] [place] [address] 11/27/2025 2:00 PM MOLDER OFFBEARER Appointment [facility] Mammography [address] [place] [address] Janelle Del Real, DIGITAL COMMENTATOR [address] [place], [place] [address] documented as of this encounter Visit Diagnoses Not on filedocumented in this encounter Additional Health Concerns Assessment Noted Time PHQ-9 Depression Total Score: 5 12/08/19 19 1:27 PM MOLDER OFFBEARER documented as of this encounter Care Teams Car Scrubber Relationship Specialty Start Date End Date Patti Langley DIGITAL COMMENTATOR PCP - General NURSE PRACTITIONER 11/29/18 04/20/24 Janelle Del Real NP [address] [facility] [address] [place] [address] PCP - General NURSE PRACTITIONER 04/21/24 Christiano Umaña MD Three [facility] [address] [place] [address] Consulting Physician CARDIOVASCULAR DISEASE 01/22/24 Mono Estrada MD [address] [place] [address] NEUROLOGY 01/22/24 documented as of this encounter
--- OUTSIDE RECORDS SUMMARY | 2025-11-08 17:44 | XMS_ITS | Encounter Summary ---
Author Organization [facility] Address [address] [place] [address] Care Team Providers Care Pedigree Researcher Name Role Phone Patti Langley CORE DRILL OPERATOR Primary Care Provider Unavaila ble Christiano Umaña MD Unavailable [phone] Mono Estrada MD Unavailable Janelle Del Real CORE DRILL OPERATOR Primary Care Provider Encounter Details Date Type Department Care Team (Late st Contact Info) Description 03/21/2021 PlayHaven Message Enc [facility] Medical Group Family Medicine - [place] 5 [place] [address] Ivan, [facility] Provider RE:Chest Xray Social History Tobacco Use Types Packs/Day Years [...] Sex Assigned at Female 12/28/2024 3:21 PM MANUAL WINDER Legal Sex Female 4:42 PM CDT Gender Identity Female 05/30/2025 11:35 AM CDT Sexual Orientation Not on file COVID-19 Exposure Response Date Recorded In the last month, have you been in contact with someone who was confirmed or suspected to have Coronavirus / COVID-19? No / Unsure 03/20/2021 11:30 AM CDT documented as of this encounter Progress Notes * Tom Kasper MA - 03/21/2021 2:01 PM CDT FYI documented in this encounter Plan of Treatment Upcoming Encounters Date Type Department Care Team (Late st Contact Info) Description 11/14/2025 12:40 PM MANUAL WINDER Office Visit [facility] Medical Group Multispecialty Care - [place] [address] [place] [address] Janelle Del Real, CORE DRILL OPERATOR [address] [facility] [address] [place] [address] 11/27/2025 12:00 PM MANUAL WINDER Office Visit [facility] THREE [facility] [address] [place] [address] Christiano Umaña MD Three [facility] [address] [place] [address] 11/27/2025 2:00 PM MANUAL WINDER Appointment [facility] Mammography [address] [place], [place] [address] Janelle Del Real, CORE DRILL OPERATOR [address] [facility] [address] [place] [address] documented as of this encounter Visit Diagnoses Not on filedocumented in this encounter Additional Health Concerns Assessment Noted Time PHQ-9 Depression Total Score: 5 12/08/19 19 1:27 PM MANUAL WINDER documented as of this encounter Care Teams Pedigree Researcher Relationship Specialty Start Date End Date Patti Langley CORE DRILL OPERATOR PCP - General NURSE PRACTITIONER 11/29/18 04/20/24 Janelle Del Real, CORE DRILL OPERATOR [address] [facility] [address] [place] [address] PCP - General NURSE PRACTITIONER 04/21/24 Christiano Umaña MD Three [facility] [address] [place] [address] Consulting Physician CARDIOVASCULAR DISEASE 01/22/24 Mono Estrada MD [address] [facility] [address] [place] [address] NEUROLOGY 01/22/24 documented as of this encounter
--- OUTSIDE RECORDS SUMMARY | 2025-11-08 17:44 | XMS_ITS | Encounter Summary ---
Author Organization [facility] Address [facility] [place] [address] Care Team Providers Care Forestry Conservation Worker Name Role Phone Christiano Umaña MD Unavailable [phone] Mono Estrada MD Unavailable Janelle Del Real NP Primary Care Provider [phone] Encounter Details Date Type Department Care Team (Late st Contact Info) Description 07/12/2024 Mobimediat Message Enc [facility] Medical Group Multispecialty Care - [place] [address] [place] [address] Janelle Del Real, TAY [address] [place] [address] Follow up testing Social History Tobacco Use Types Packs/Day Years Used Date Smoking Tobacco: Every Day Cigarettes 1 32 Passive Smoke Exposure: Current Smokeless Tobacco: Never Comments:provider to consuel Alcohol Use Standard Drinks/Week Comments Yes 10 (1 standard drink = 0.6 oz pu re alcohol) weekends [facility] Utilities Answer Date Recorded In the past 12 months has [facility] [employer], gas, oil, or water [employer] threatened to shut off services in your [...] How often do you attend chur or spiritism services? 1 to 4 times per year 03/19/2024 Do you belong to any clubs o r organizations such as islam groups, unions, fraternal or athletic groups, or [...] Recorded Patient Health Questionnaire-2 Score 0 03/08/2024 [facility] Occupat ional Health - Occupational Stress Questionnaire Answer [...] any time in the past 12 [facility], were you homeless or living in a alf (including now)? No 03/19/2024 Comments No Sex and Gender Information Value Date Recorded Sex Assigned at Female 12/28/2024 3:21 PM SYSTEM SUPPORT ADMINISTRATOR Legal Sex Female 4:42 PM CDT Gender [...] st Contact Info) Description 11/14/2025 12:40 PM SYSTEM SUPPORT ADMINISTRATOR Office Visit [facility] Medical Group Multispecialty Care - [place] [address] [place] [address] Janelle Del Real, TAY [address] [place] [address] 11/27/2025 12:00 PM SYSTEM SUPPORT ADMINISTRATOR Office Visit [facility] THREE [facility] [address] [place] [address] Christiano Umaña MD Three [facility] [address] [place] [address] 11/27/2025 2:00 PM SYSTEM SUPPORT ADMINISTRATOR Appointment [facility] Mammography [address] [place], [place] [address] Janelle Del Real, TAY [address] [place] [address] documented as of this encounter Visit Diagnoses Not on filedocumented in this encounter Additional Health Concerns Assessment Noted Time PHQ-9 Depression Total Score: 5 12/08/19 19 1:27 PM SYSTEM SUPPORT ADMINISTRATOR documented as of this encounter Care Teams Forestry Conservation Worker Relationship Specialty Start Date End Date Janelle Del Real, CONSULTING UTILITY FORESTER [address] [facility] [address] [place] [address] PCP - General NURSE PRACTITIONER 04/21/24 Christiano Umaña MD Three [facility] [address] [place] [address] Consulting Physician CARDIOVASCULAR DISEASE 01/22/24 Mono Estrada MD [address] [facility] [address] [place] [address] NEUROLOGY 01/22/24 documented as of this encounter
--- OUTSIDE RECORDS SUMMARY | 2025-11-08 17:44 | XMS_ITS | Encounter Summary ---
Author Organization [facility] Address [address] [place] [address] Care Team Providers Care Passenger Attendant Name Role Phone Patti Langley SUPERVISOR VARNISH Primary Care Provider Unavaila Christiano Reynolds MD Unavailable [phone] Mono Estrada MD Unavailable Janelle Del Real SUPERVISOR VARNISH Primary Care Provider Encounter Details Date Type Department Care Team (Late st Contact Info) Description 07/30/2021 HelpHubt Message Enc [facility] Medical Group Family Medicine - [place] 5 [place] [address] Patti Langley, SUPERVISOR VARNISH Question Social History Tobacco Use Types Packs/Day [...] Sex Assigned at Female 12/28/2024 3:21 PM INSTRUCTOR BALLROOM DANCING Legal Sex Female 4:42 PM CDT Gender [...] Progress Notes * Tom Kasper MA - 07/31/2021 8:27 AM CDT Called pt and got her scheduled for today with Emily at 2PM. documented in this encounter Plan of Treatment Upcoming Encounters Date Type Department Care Team (Late st Contact Info) Description 11/14/2025 12:40 PM INSTRUCTOR BALLROOM DANCING Office Visit [facility] Medical Group Multispecialty Care - [place] [address] [place] [address] Janelle Del Real, SUPERVISOR VARNISH [address] [place] [address] 11/27/2025 12:00 PM INSTRUCTOR BALLROOM DANCING Office Visit [facility] THREE [facility] [address] [place], [place] [address] Christiano Umaña MD Three [facility] [address] [place], [place] [address] 11/27/2025 2:00 PM INSTRUCTOR BALLROOM DANCING Appointment [facility] Mammography [address] [place], [place] [address] Janelle Del Real, SUPERVISOR VARNISH [address] [place], [place] [address] documented as of this encounter Visit Diagnoses Not on filedocumented in this encounter Additional Health Concerns Assessment Noted Time PHQ-9 Depression Total Score: 5 12/08/19 19 1:27 PM INSTRUCTOR BALLROOM DANCING documented as of this encounter Care Teams Passenger Attendant Relationship Specialty Start Date End Date Patti Langley NP PCP - General NURSE PRACTITIONER 11/29/18 04/20/24 Janelle Del Real NP [address] [facility] [address] [place] [address] PCP - General NURSE PRACTITIONER 04/21/24 Christiano Umaña MD Three [facility] [address] [place] [address] Consulting Physician CARDIOVASCULAR DISEASE 01/22/24 Mono Estrada MD [address] [facility] [address] [address] NEUROLOGY 01/22/24 documented as of this encounter
--- OUTSIDE RECORDS SUMMARY | 2025-11-08 17:44 | XMS_ITS | Encounter Summary ---
Author Organization [facility] - [facility] Address Formerly [facility] [place] [address] Care Team Providers Care Superintendent Commissary Name Role Phone Christiano Umaña MD Unavailable [phone] Mono Estrada MD Unavailable Janelle Del Real NP Primary Care Provider [phone] Encounter Details Date Type Department Care Team (Late st Contact Info) Description 04/25/2025 [employer] Guidest Message Enc [facility] Medical Group Multispecialty Care - [place] [address] [place], [place] [id number] Janelle Del Real, TAY [address] [place] [address] Cost plus drugs Social History Tobacco Use Types Packs/Day Years Used Date Smoking Tobacco: Every Day Cigarettes 1 32 Passive Smoke Exposure: Current Smokeless Tobacco: Never Comments:provider to consuel Alcohol Use Standard Drinks/Week Comments Yes 10 (1 standard drink = 0.6 oz pu re alcohol) weekends [facility] Utilities Answer Date Recorded In the past 12 months has [employer], gas, oil, or water [employer] threatened to shut off services in your [...] How often do you attend chur or latter day services? 1 to 4 times per year 03/19/2024 Do you belong to any clubs o r organizations such as voodoo groups, unions, fraternal or athletic groups, or [...] Recorded Patient Health Questionnaire-2 Score 0 03/08/2024 [facility] [place] of Occupat ional Health - Occupational Stress [...] any time in the past 12 m [facility], were you homeless or living in a [place] health care facility (including now)? No 03/19/2024 Comments No Sex and Gender Information Value Date Recorded Sex Assigned at Female 12/28/2024 3:21 PM FORM LAYER Legal Sex Female 4:42 PM CDT Gender [...] st Contact Info) Description 11/14/2025 12:40 PM FORM LAYER Office Visit [facility] Medical Group Multispecialty Care - [place] [address] [place] [address] Janelle Del Real, TAY [address] [place] [address] 11/27/2025 12:00 PM FORM LAYER Office Visit [facility] THREE [facility] [place] [address] Christiano Umaña MD Three [facility] [address] [place] [address] 11/27/2025 2:00 PM FORM LAYER Appointment [facility] Mammography [address] [place], [place] [id number] Janelle Del Real, TAY [address] [place] [address] documented as of this encounter Visit Diagnoses Not on filedocumented in this encounter Additional Health Concerns Assessment Noted Time PHQ-9 Depression Total Score: 5 12/08/19 19 1:27 PM FORM LAYER documented as of this encounter Care Teams Superintendent Commissary Relationship Specialty Start Date End Date Janelle Del Real, CROP PEST CONTROL SPECIALIST [address] [facility] [address] [place] [address] PCP - General NURSE PRACTITIONER 04/21/24 Christiano Umaña MD Three [facility] [address] [place] [address] Consulting Physician CARDIOVASCULAR DISEASE 01/22/24 Mono Estrada MD [address] [facility] [address] [place] [address] NEUROLOGY 01/22/24 documented as of this encounter
--- OUTSIDE RECORDS SUMMARY | 2025-11-08 17:44 | XMS_ITS | Encounter Summary ---
Author Organization [facility] Address [address] [place] [address] Care Team Providers Care Career Development Facilitator Name Role Phone Brenda Langley BUILDING RIGGER Primary Care Provider Unavaila Christiano Reynolds MD Unavailable [phone] Mono Estrada MD Unavailable Janelle Del Real BUILDING RIGGER Primary Care Provider Encounter Details Date Type Department Care Team (Late st Contact Info) Description 03/18/[address] [facility] Medical Group Family Medicine - [place] [address] [place] [address] Brenda Langley, BUILDING RIGGER RE: Question Social History Tobacco Use Types [...] Sex Assigned at Female 12/28/2024 3:21 PM UPPER LEATHER CUTTER Legal Sex Female 4:42 PM CDT Gender Identity Female 05/30/2025 11:35 AM CDT Sexual Orientation Not on file COVID-19 Exposure Response Date Recorded In the last month, have you been in contact with someone who was confirmed or suspected to have Coronavirus / COVID-19? No / Unsure 03/20/2021 11:30 AM CDT documented as of this encounter Progress Notes * Tom Kasper MA - 03/18/2021 9:53 AM CDT Please advise. documented in this encounter Plan of Treatment Upcoming Encounters Date Type Department Care Team (Late st Contact Info) Description 11/14/2025 12:40 PM UPPER LEATHER CUTTER Office Visit [facility] Medical Group Multispecialty Care - [place] [address] [place] [address] Janelle Del Real, TAY [address] [facility] [address] [place] [address] 11/27/2025 12:00 PM UPPER LEATHER CUTTER Office Visit [facility] THREE [facility] [address] [place] [address] Christiano Umaña MD Three [facility] [address] [place] [address] 11/27/2025 2:00 PM UPPER LEATHER CUTTER Appointment [facility] Mammography [address] [place] [address] Janelle Del Real NP [address] [facility] [address] [place] [address] documented as of this encounter Results * XR CHEST PA+LAT (03/20/2021 11:55 AM CDT) Anatomical Region Laterality Modality Chest Radiographic Christy ging 03/20/2021 6:25 PM CDT Impressions 03/20/2021 6:27 PM CDT =====IMPRESSION:===== No acute or focal infiltrates. Referred By: BRENDA LANGLEY Interpreted By: Gil Donnelly MD, 03/20/2021 6:25 PM Narrative 03/20/2021 6:27 PM CDT Examination: Chest x-ray 2 view Exam date/time: 03/20/2021 11:41 AM Reason For Exam: chest pain since 03/11/2021 Comparison: Previous studies September 2020 Technique: PA and lateral views of the chest were obtained. Findings: Heart size within normal limits. Mediastinum is unremarkable. In the lung parenchyma no definite focal infiltrates. No pneumothorax. No effusion. Perhaps mild thickening of the central bronchi. Osseous structures are intact. Procedure Note Gil Donnelly MD - 03/20/2021 Examination: Chest x-ray 2 view Exam date/time: 03/20/2021 11:41 AM Reason For Exam: chest pain since 03/11/2021 Comparison: Previous studies September 2020 Technique: PA and lateral views of the chest were obtained. Findings: Heart size within normal limits. Mediastinum is unremarkable.In the lung parenchyma no definite focal infiltrates. No pneumothorax. No effusion. Perhaps mild thickening of the central bronchi. Osseous structures are intact. =====IMPRESSION:===== No acute or focal infiltrates. Referred By: BRENDA LANGLEY Interpreted By: Gil Donnelly MD, 03/20/2021 6:25 PM Brenda Langley BUILDING RIGGER GENERAL IMAGING Final Result documented in this encounter Visit Diagnoses Diagnosis Chest pain- Primary Chest pain, unspecified Left hip pain Pain in joint, pelvic region and thigh Chest pain Chest pain, unspecified Screening mammogram for breast cancer documented in this encounter Additional Health Concerns Assessment Noted Time PHQ-9 Depression Total Score: 5 12/08/19 19 1:27 PM UPPER LEATHER CUTTER documented as of this encounter Care Teams Career Development Facilitator Relationship Specialty Start Date End Date Brenda Langley, BUILDING RIGGER PCP - General NURSE PRACTITIONER 11/29/18 04/20/24 Janelle Del Real, TAY [address] [facility] [address] [place] [address] PCP - General NURSE PRACTITIONER 04/21/24 Christiano Umaña MD [facility] [address] [place] [address] Consulting Physician CARDIOVASCULAR DISEASE 01/22/24 Mono Estrada MD [address] [facility] [address] [place] [address] NEUROLOGY 01/22/24 documented as of this encounter
--- OUTSIDE RECORDS SUMMARY | 2025-11-08 17:44 | XMS_ITS | Encounter Summary ---
Author Organization [facility] Address [facility] [place] [address] Care Team Providers Care Snowboard Designer Name Role Phone Patti Langley BRICKLAYER PAVING BRICK Primary Care Provider Unavaila ble Christiano Umaña MD Unavailable [phone] Mono Estrada MD Unavailable Janelle Del Real BRICKLAYER PAVING BRICK Primary Care Provider [phone] Reason for Referral * Surgical (Routine) - Closed Specialty Diagnoses / Procedures Referred By Kimberly dumont Referred To Contact Procedures Case request operating room: INJECTION TRIGGER POINT trapezius, deltoid, pectoralis Jaylene Garcia NP [address] [facility] [address] [place] [address] Phone: tel: [phone] fax: Referral ID Status Reason Start Date Expiration Date Visits Re quested Visits Authorized [id number] Closed 06/24/2021 07/25/2022 1 1 Encounter Details Date Type Department Care Team (Late st Contact Info) Description 06/24/2021 Prep for Procedure [facility] [place] [address] [phone] Jaylene Garcia NP [address] [facility] [address] [place] [phone] (Work) Social History Tobacco Use Types Packs/Day Years Used Date Smoking Tobacco: Every Day Cigarettes 1 29 Smokeless Tobacco: Never Alcohol Use Standard Drinks/Week Comments Yes 0 (1 standard drink = 0.6 oz pur e alcohol) weekends AUDIT-C Answer Date Recorded Frequency of Alcohol Consumption 2-4 times a mon 12/08/2018 Average Number of Drinks 5 or 6 019 Frequency of Binge Drinking Not on file 11/23 PHQ-2 Answer Date Recorded PHQ-2 Score - If the patient scores above 3, please move on to questions 3-9 0 09/27/2020 Comments No Sex and Gender Information Value Date Recorded Sex Assigned at Female 12/28/2024 3:21 PM CHIEF OF INTERNAL MEDICINE Legal Sex Female 4:42 PM CDT Gender [...] st Contact Info) Description 11/14/2025 12:40 PM CHIEF OF INTERNAL MEDICINE Office Visit [facility] Medical [facility] Multispecialty Care - [place] [address] [facility] [address] [place] [address] Janelle Del Real, BRICKLAYER PAVING BRICK [address] [facility] [address] [place] [address] 11/27/2025 12:00 PM CHIEF OF INTERNAL MEDICINE Office Visit [facility] [address] [facility], [address] [place] [address] Christiano Umaña MD Three [facility] [address] [place] [address] 11/27/2025 2:00 PM CHIEF OF INTERNAL MEDICINE Appointment [facility] Mammography [address] [place] [address] Janelle Del Real, BRICKLAYER PAVING BRICK [address] [facility] [address] [place] [address] Scheduled Orders Name Type Priority Associated Diagnoses Orde r Schedule Case request operating room: INJECTION TRIGGER POINT trapezius, deltoid, pectoralis Case Request Routine Once for 1 Occurrences starting 06/24/2021 until 06/24/2021 documented as of this encounter Visit Diagnoses Not on filedocumented in this encounter Additional Health Concerns Assessment Noted Time PHQ-9 Depression Total Score: 5 12/08/19 19 1:27 PM CHIEF OF INTERNAL MEDICINE documented as of this encounter Care Teams Snowboard Designer Relationship Specialty Start Date End Date Patti Langley BRICKLAYER PAVING BRICK PCP - General NURSE PRACTITIONER 11/29/18 04/20/24 Janelle Del Real, BRICKLAYER PAVING BRICK [address] [facility] [address] [place] [address] PCP - General NURSE PRACTITIONER 04/21/24 Christiano Umaña MD Three [facility] [address] [place] [address] Consulting Physician CARDIOVASCULAR DISEASE 01/22/24 Mono Estrada MD [address] [facility] [address] [place] [address] NEUROLOGY 01/22/24 documented as of this encounter
--- OUTSIDE RECORDS SUMMARY | 2025-11-08 17:44 | XMS_ITS | Encounter Summary ---
Author Organization [facility] Address [facility] [place] [address] Care Team Providers Care Pattern Stamper Name Role Phone Christiano Umaña MD Unavailable [phone] Mono Estrada MD Unavailable Janelle Del Real NP Primary Care Provider [phone] Encounter Details Date Type Department Care Team (Late st Contact Info) Description 09/05/2024 Livekickt Message Enc [facility] Medical Group Multispecialty Care - [place] [address] [place], [place] [id number] Janelle eDl Real, TAY [address] [place] [address] Hip pain Social History Tobacco Use Types Packs/Day Years Used Date Smoking Tobacco: Every Day Cigarettes 1 32 Passive Smoke Exposure: Current Smokeless Tobacco: Never Comments:provider to consuel Alcohol Use Standard Drinks/Week Comments Yes 10 (1 standard drink = 0.6 oz pu re alcohol) weekends [facility] Utilities Answer Date Recorded In the past 12 months has [facility] [employer], gas, oil, or water [employer] threatened to shut off services in your [...] How often do you attend chur or sabianist services? 1 to 4 times per year 03/19/2024 Do you belong to any clubs o r organizations such as oriental orthodox groups, unions, fraternal or athletic groups, or [...] Recorded Patient Health Questionnaire-2 Score 0 03/08/2024 [facility] [place] [facility] - [...] any time in the past 12 m [facility], were you homeless or living in a [place] facility (including now)? No 03/19/2024 Comments No Sex and Gender Information Value Date Recorded Sex Assigned at Female 12/28/2024 3:21 PM CRIMINAL DEFENSE ATTORNEY Legal Sex Female 4:42 PM CDT Gender [...] st Contact Info) Description 11/14/2025 12:40 PM CRIMINAL DEFENSE ATTORNEY Office Visit [facility] Medical Group Multispecialty Care - [place] [address] [place] [address] Janelle Del Real, TAY [address] [place] [address] 11/27/2025 12:00 PM CRIMINAL DEFENSE ATTORNEY Office Visit [facility] THREE [facility] [place] [address] Christiano Umaña MD Three [facility] [address] [place] [address] 11/27/2025 2:00 PM CRIMINAL DEFENSE ATTORNEY Appointment [facility] Mammography [address] [place], [place] [id number] Janelle Del Real, TAY [address] [facility] [address] [place] [address] documented as of this encounter Visit Diagnoses Not on filedocumented in this encounter Additional Health Concerns Assessment Noted Time PHQ-9 Depression Total Score: 5 12/08/19 19 1:27 PM CRIMINAL DEFENSE ATTORNEY documented as of this encounter Care Teams Pattern Stamper Relationship Specialty Start Date End Date Janelle Del Real, PROMOTIONS DIRECTOR [address] [facility] [address] [place] [address] PCP - General NURSE PRACTITIONER 04/21/24 Christiano Umaña MD Three [facility] [address] [place] [address] Consulting Physician CARDIOVASCULAR DISEASE 01/22/24 Mono Estrada MD [address] [facility] [address] [place] [address] NEUROLOGY 01/22/24 documented as of this encounter
--- OUTSIDE RECORDS SUMMARY | 2025-11-08 17:45 | XMS_ITS | Encounter Summary ---
Author Organization [facility] Address [address] [place] [address] Care Team Providers Care Occupational Therapy Professor Name Role Phone Patti Langley CREDIT CONTROL MANAGER Primary Care Provider Unavaila Christiano Reynolds MD Unavailable [phone] Mono Estrada MD Unavailable Janelle Del Real CREDIT CONTROL MANAGER Primary Care Provider Encounter Details Date Type Department Care Team (Late st Contact Info) Description 05/08/2021 EventHivet Message Enc [facility] Medical Group Family Medicine - [place] [address] [place] [address] Patti Langley, CREDIT CONTROL MANAGER RE: FW: Question Social History Tobacco Use [...] Sex Assigned at Female 12/28/2024 3:21 PM LEAVE COORDINATOR Legal Sex Female 4:42 PM CDT Gender Identity Female 05/30/2025 11:35 AM CDT Sexual Orientation Not on file COVID-19 Exposure Response Date Recorded In the last month, have you been in contact with someone who was confirmed or suspected to have Coronavirus / COVID-19? No / Unsure 05/01/2021 8:14 PM CDT documented as of this encounter Progress Notes * Tom Kasper MA - 05/09/2021 7:39 AM CDT Any information regarding this? * Tom Kasper MA - 05/09/2021 7:39 AM CDTFrom: Courtney Potter To: Patti Langley Sent: 05/08/2021 4:12 PM CDT Subject: Question I had my appointment with Dr. Cochran last week. She said she was going to recommend pain management shots and an MRI on my thoracic spine. She thinks it might be a pinched nerve at my t2. I was wondering if that was being set up yet? documented in this encounter Plan of Treatment Upcoming Encounters Date Type Department Care Team (Late st Contact Info) Description 11/14/2025 12:40 PM LEAVE COORDINATOR Office Visit [facility] Medical Group Multispecialty Care - [place] [address] [facility] [address] [place] [address] Janelle Del Real NP [address] [facility] [address] [place] [address] 11/27/2025 12:00 PM LEAVE COORDINATOR Office Visit [facility] [facility] [place] [address] Christiano Umaña MD Three [facility] [address] [place] [address] 11/27/2025 2:00 PM LEAVE COORDINATOR Appointment [facility] Mammography [address] [place] [address] Janelle Del Real NP [address] [facility] [address] [place] [address] documented as of this encounter Visit Diagnoses Not on filedocumented in this encounter Additional Health Concerns Assessment Noted Time PHQ-9 Depression Total Score: 5 12/08/19 19 1:27 PM LEAVE COORDINATOR documented as of this encounter Care Teams Occupational Therapy Professor Relationship Specialty Start Date End Date Patti Langley CREDIT CONTROL MANAGER PCP - General NURSE PRACTITIONER 11/29/18 04/20/24 Janelle Del Real, CREDIT CONTROL MANAGER [address] [facility] [address] [place] [address] PCP - General NURSE PRACTITIONER 04/21/24 Christiano Umaña MD [address] [facility] [address] [place] [address] Consulting Physician CARDIOVASCULAR DISEASE 01/22/24 Mono Estrada MD [address] [facility] [address] [place] [address] NEUROLOGY 01/22/24 documented as of this encounter
--- OUTSIDE RECORDS SUMMARY | 2025-11-08 17:45 | XMS_ITS | Clinical Summary ---
Author Organization [facility] Address [address] [place] [address] Care Team Providers Care Rubbing Bed Operator Name Role Phone Christiano Umaña MD Unavailable [phone] Mono Estrada MD Unavailable Janelle Del Real NP Primary Care Provider [phone] Allergies No known active allergies Medications vitamin D3, cholecalciferol, 5000 UNITS capsule Take 1 capsule (125 mcg total) by mouth daily. Active Fingolimod HCl (GILENYA) 0.5 MG Cap Take 1 capsule by mouth daily. 2 Active gabapentin (NEURONTIN) 300 MG capsule Take 1 capsule (300 mg total) by mouth 2 (two) times a day. 3 Active esomeprazole (NEXIUM) 20 MG capsule Take 1 capsule (20 mg total) by mouth 2 (two) times a day. Active fluticasone propionate (FLONASE) 50 MCG/ACT nasal sprayIndications: Allergic rhinitis, unspecified seasonality, unspecified trigger 2 sprays by Each Nostril route daily. 48 g 4 Active Fluticasone-Umecl idin-Vilant (TRELEGY ELLIPTA) 100-62.5-25 MCG/ACT AEROSOL POWDER, BREATH ACTIVATEDIndicati ons:Pulmonary emphysema, unspecified emphysema type (CMS/HCC HHS/HCC),Cigarett e nicotine dependence with other nicotine-induced disorder Inhale 1 puff into the lungs daily. Rinse mouth after use 1 each 2 5 Active varenicline, starter pack, (CHANTIX STARTING MONTH ) 0.5 MG X 11 & 1 MG X 42 tabletIndications :Pulmonary emphysema, unspecified emphysema type ([facility]),Cigarett e nicotine dependence with other nicotine-induced disorder Take as directed 53 each 5 Active amLODIPine (NORVASC) 5 MG tabletIndications :Essential hypertension Take 1 tablet (5 mg total) by mouth daily. 90 tablet 1 5 Active metoprolol succinate ER (TOPROL-XL) 50 MG 24 hr tabletIndications :Essential hypertension Take 1 tablet (50 mg total) by mouth nightly at bedtime. 90 tablet 2 5 Active aspirin 81 MG chewable tabletIndications :TIA (transient ischemic attack) Chew 1 tablet (81 mg total) by mouth daily. 90 tablet 3 5 04/25/20 26 Active atorvastatin (LIPITOR) 20 MG tabletIndications :TIA (transient ischemic attack) Take 1 tablet (20 mg total) by mouth daily. 90 tablet 1 5 04/25/20 26 Active traZODone (DESYREL) 50 MG tabletIndications :Primary insomnia Take 1 tablet (50 mg total) by mouth nightly at bedtime. 90 tablet 1 5 Active DULoxetine (CYMBALTA) 60 MG capsuleIndication s:Numbness and tingling in both hands Take 1 capsule (60 mg total) by mouth 2 (two) times daily. 180 capsule 5 Active OZEMPIC 2 mg/dose injection (PEN)Indications: Type 2 diabetes mellitus without complication, without long-term current use of insulin ([facility]) INJECT 2 MG UNDER THE SKIN ONE DAY A WEEK 6 mL 1 5 Active rOPINIRole (REQUIP) 0.5 MG tabletIndications :Restless leg syndrome Take 1 tablet (0.5 mg total) by mouth nightly. 90 tablet 5 Active azelastine 0.1 % nasal sprayIndications: Acute non-recurrent frontal sinusitis 2 sprays by Nasal route 2 (two) times daily as needed for Rhinitis. Use in each nostril as directed 10 mL 3 5 Active albuterol sulfate HFA 108 (90 Base) MCG/ACT inhalerIndication s:Wheezing Inhale 2 puffs into the lungs every 6 (six) hours as needed. 8.5 g 1 Active amoxicillin-clavu lanate (AUGMENTIN) 875-125 MG tabletIndications :Acute non-recurrent frontal sinusitis Take 1 tablet (875 mg total) by mouth 2 (two) times daily for 10 days. 20 tablet 5 10/09/20 25 ketorolac (TORADOL) 10 MG tabletIndications :Acute right-sided low back pain without sciatica Take 1 tablet (10 mg total) by mouth every 6 (six) hours as needed for Pain. 20 tablet 5 10/28/20 25 Hospital, Clinic, or Other Facility Administered Medication Ordered Dose Route Frequency Start Date End Date Status ketorolac (TORADOL) injection 60 mgIndications:Acute right-sided low back pain without sciatica 60 mg IM Once 10/23/2025 10/23/2025 Ended Active Problems Problem Noted Date Diagnosed Date Traumatic ecchymosis of right upper arm, initial encounter 05/30/2025 Assessment & Plan (05/30/2025 12:14 PM CDT): As patient reports bruise is improving and pain is adequately controlled, I recommend that we continue to monitor. I suspect patient just has a large ecchymosis without underlying orthopedic injury. Patient can use oral szkb-[id number] pain medication such as ibuprofen or Tylenol as needed. She can also alternate ice and heat if pain persist. No concern for blood clot. Anticipate patient had increased/more dramatic bruising because she is taking aspirin 81 mg oral daily. Discussed that we could get x-ray imaging to evaluate arm for fracture however patient declined at this time. If worsens, patient can return for reevaluation. Patient counseled on signs/symptoms in which to present to the emergency department. Pulmonary emphysema, unspecified emphysema type 04/20/2025 Allergic rhinitis, unspecifi ed seasonality, unspecified trigger 04/20/2025 SI joint arthritis 11/04/2024 Right hip pain 10/12/2024 Left hip pain 10/12/2024 Myofascial pain 10/12/2024 Carpal tunnel syndrome, bilateral upper limbs Lumbar radiculopathy 06/24/2024 Thoracic spine pain 06/24/2024 Vitamin D deficiency 06/24/2024 Cigarette nicotine dependenc e with other nicotine-induced disorder 06/24/2024 Numbness and tingling in both hands 06/24/2024 Essential hypertension 03/21/2024 TIA (transient ischemic attack) 03/19/2024 S/P arthroscopy of right shoulder 01/28/2024 Adhesive capsulitis of right shoulder 01/05/2024 Superior glenoid labrum lesi on of right shoulder, initial encounter 01/05/2024 Type 2 diabetes mellitus wit hout complication, without long-term current use of insulin 03/13/2022 Abnormal MRI, thoracic spine 03/13/2022 Bilateral carpal tunnel syndrome 08/01/2018 Overview (12/08/2018): Last Assessment & Plan: Need EMG/NCS report Referral to Dr. 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 Risks discussed with patient and including cryptococcal meningitis and PML (21 cases). [facility]: MRI brain with contrast. MRI cervical spine normal Oct 2015. Exercise Smoking cessation; risk of worsening disability discussed. Hiatal hernia 07/24/2010 Resolved Problems Problem Noted Date Diagnosed Date Resolved Date Neuromuscular disorder 02/02/202301/13 Thoracic radiculopathy 03/13/202201/13 Neck muscle strain 02/03/2019 9 Encounters Date Type Department Care Team Description 10/23/2025 12:20 PM MACHINERY MECHANIC Office Visit [facility] Medical Group Multispecialty Care - [place] [address] [place] [address] Janelle Del Real, SHEAR TENDER Back Pain (R low back) 10/23/2025 Travel 09/29/2025 11:40 AM MACHINERY MECHANIC Office Visit [facility] [place] [address] [place] [address] Janelle Del Real, SHEAR TENDER Congestion; Cough 09/29/2025 Travel from Last 3 Months Immunizations Immunization Administration Dates Next Due Fluzone (IIV3, Trivalent, 0.5 ML Prefilled Syrin ge) 10/23/2025 Influenza Adult (Generic) 12/29/2022 MODERNA COVID-19 (12+) MRNA, LNP-S, PF, 100 MCG/ 0.5 ML DOSE 02/20/2021,01/24/2021 Pneumococcal (Prevnar 20) 06/24/2024 Tdap (Generic) 08/24/2015 Family History Medical History Relation Comments Cancer Father COPD Mother Stroke Mother Miscarriages / Stillbirths Sister Still Relation Status Comments Brother (Age 24) Father (Age 68) Mother (Age 79) Sister Alive Social History Tobacco Use Types Packs/Day Years Used Date Smoking Tobacco: Every Day Cigarettes 1 32 Passive Smoke Exposure: Current Smokeless Tobacco: Never Tobacco Cessation:Ready to Q uit: Yes; Counseling Given: Yes Comments:provider to consuel Alcohol Use Standard Drinks/Week Comments Yes 10 (1 standard drink = 0.6 oz pu re alcohol) weekends [facility] Utilities Answer Date Recorded In the past 12 months has [employer], [employer], or water [employer] threatened to shut off services in your [...] week 03/19/2024 How often do you attend [facility] or yazidism services? 1 to 4 times per year 03/19/2024 Do you belong to any clubs o r organizations such as confucianist groups, unions, fraternal or athletic groups, or [...] Recorded Patient Health Questionnaire-2 Score 0 03/08/2024 [facility] - Occupational Stress Questionnaire Answer [...] any time in the past 12 m [facility], were you homeless or living in a snf (including now)? 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 file Not on file Not on file Last Filed Vital Signs Vital Sign Reading Time Taken Comments Blood Pressure 122/84 10/23/2025 12:50 PM MACHINERY MECHANIC Pulse 89 10/23/2025 12:31 PM MACHINERY MECHANIC Temperature 36.6 C (97.8 F) 10/23/2025 12:31 PM MACHINERY MECHANIC Respiratory Rate 18 10/23/2025 12:3 1 PM MACHINERY MECHANIC Oxygen Saturation 98% 10/23/2025 12: 31 PM MACHINERY MECHANIC Inhaled Oxygen Concentration - - Weight 85.2 kg (187 lb 12.8 oz) 025 12:31 PM MACHINERY MECHANIC Height 165.1 cm (5' 5) 10/23/2025 12:3 1 PM MACHINERY MECHANIC Body Mass Index 31.25 10/23/2025 12:31 PM MACHINERY MECHANIC Plan of Treatment Upcoming Encounters Date Type Department Care Team (Late st Contact Info) Description 11/14/2025 12:40 PM MACHINERY MECHANIC Office Visit [facility] Medical Group Multispecialty Care - [place] [address] [place] [address] Janelle Del Real, SHEAR TENDER [address] [facility] [address] [place] [address] 11/27/2025 12:00 PM MACHINERY MECHANIC Office Visit [facility] [address] [place] [address] Christiano Umaña MD Three [facility] [address] [place] [address] 11/27/2025 2:00 PM MACHINERY MECHANIC Appointment [facility] Mammography [address] [place] [address] Janelle Del Real, SHEAR TENDER [address] [facility] [address] [place] [address] Health Maintenance Due Date Last Done Comments Hepatitis B Vaccines (1 of 3 - 19+ 3-dose series) 1995 Cervical Cancer Screening Pap with HPV Testing (Age 30 to 64) Every 5 Years 2006 Diabetes: Retinopathy Eye Exam 05/12/2024 05/12/2022 Mammogram Screening 08/07/2024 08/07/2022, 09/07/2020, 09/07/2020 PHQ-2 (Physician [place]) 11/23/2024 03/08/2024 Annual Physical 06/24/2025 06/24/2024 COVID-19 Vaccine ( season) 2025 12/29/2022, 02/20/2021, 01/24/2021 DTaP, Tdap and Td Vaccines (2 - Td or Tdap) 08/24/2025 08/24/2015 Hemoglobin A1C 04/23/2026 10/23/2025, 03/24, 07/27/2024, Additional history exists Kidney Health Evaluation 06/16/2026 06/16/2025 Lipid Panel 06/16/2026 06/16/2025, 02/22, 03/03/2023, Additional history exists Cervical Cancer Screening Pap Smear (Age 30 to 64) Every 3 Years 08/05/2026 08/05/2023, 06/05/2021 Cervical Cancer Screening with HPV 08/05/2026 Colorectal Cancer Screening Colonoscopy (10 Years) 12/31/2033 12/31/2023 Hepatitis C Completed 06/24/2024 Pneumococcal Vaccine: Pediatrics (0 to 5 Years) and At-Risk Patients (6 to 49 Years) Completed 06/24/2024 Influenza Adult Completed 10/23/2025, 12/29/2022 Hepatitis A Vaccines Aged Out No long er eligible based on patient's age to complete this topic Meningococcal B Vaccine Aged Out No l onger eligible based on patient's age to complete this topic Meningococcal Vaccine Aged Out No brady prince eligible based on patient's age to complete this topic RSV Immunizations Under 20 Months Aged Out No longer eligible based on patient's age to complete this topic Procedures Procedure Name Priority Date/Time Associated Diagnosis Comments URINALYSIS AUTO DIP Routine 10/23/2025 Acute right-sided low back pain without sciatica HEMOGLOBIN, GLYCOSYLATED Routine 10/23/2025 Type 2 diabetes mellitus without complication, without long-term current use of insulin ([facility]) LIPID PANEL Routine 06/16/2025 9:30 AM CDT Routine general medical examination at a health care facility HEPATITIS C ANTIBODY Routine 06/24/2024 3:40 PM CDT Need for hepatitis C screening test COLONOSCOPY GENERIC (SCAN ORDER) 12/31/2023 OUTSIDE CYTOPATH CERV/VAG INTERPRET (PAP) (SCAN ORDER) 08/05/2023 MAMMOGRAM GENERIC (SCAN ORDER) 08/07/2022 DIABETIC RETINOPATHY EXAM (NEGATIVE)(SCAN ORDER) Routine 05/12/2022 from Last 3 Months or Most Recently Relevant to Health Maintenance Results * (ABNORMAL) URINALYSIS AUTO DIP (10/23/2025) COLOR (U) YELLOW YELLOW [address], [place] TRANSPARENCY CLEAR CLEAR MG[address], [place] GLUCOSE (U) NEGATIVE NEGATIVE MG/DL MG-[address], [place] BILIRUBIN (U) 1+ (SMALL)(A) NEGATIVE MG-[address], [place] KETONES MG/DL (U) NEGATIVE NEGATIVE MG/DL MG-[address], [place] SPECIFIC GRAVITY (U) 1.025 1.001 - 1.035 MG-[address], [place] BLOOD (U) NEGATIVE NEGATIVE MG-[address], [place] U PH 5.5 5.0 - 9.0 MG-[address], [place] PROTEIN (U) NEGATIVE NEGATIVE mg/dL MG-[address], [place] UROBILINOGEN 1.0 0.2 - 1.0 EU/dL = mg/dL MG-[address], [place] NITRITES NEGATIVE NEGATIVE MG/DL MG-[address], [place] LEUKOCYTES (U) NEGATIVE NEGATIVE MG-[address], [place] URINE URINE SPECIMEN OBTAINED BY CLEAN CATCH PROCEDURE / Unknown 10/23/2025 Janelle Del Real NP URINE ORDERABLES Final Resu lt Performing Organization Address City/[facility]/ZIP Co de Phone Number [address], [place] [address] [place] [address], * HEMOGLOBIN, GLYCOSYLATED (10/23/2025) Pathologist [facility] HGB A1C 5.6 % MG-[address], [place] BLOOD VENOUS BLOOD SPECIMEN / Unknown 10/23/2025 Janelle Del Real NP LABORATORY Final Resul t [address], [place] [address] [place] [address], * LIPID PANEL (06/16/2025 9:30 AM CDT) CHOLESTEROL 132 100 - 199 mg/dL [facility] TRIGLYCERIDES 105 0 - 149 mg/dL [facility] HDL 49 >39 mg/dL [facility] VLDL CALCULATION 19 5 - 40 mg/dL [facility] 1 LDL (CALCULATED) 64 0 - 99 mg/dL [facility] 1 06/16/2025 9:30 AM CDT 06/16/2025 Narrative [facility] - 06/17/2025 8:11 AM CDT Performed at: 01 - [facility] [address] [id number] Cash Applications Specialist: Sreedhar Boyle PhD, Phone: [phone] Janelle Del Real NP LABORATORY Final Resul t Performing Organization Address City/[facility] Co de Phone Number [facility] [address] [place] [address] [facility] 1 * HEPATITIS C ANTIBODY (06/24/2024 3:40 PM CDT) Pathologist [facility] HEPATITIS C AB NON-REACTI VE NON-REACT TO 06/28/2024 6:40 PM CDT [facility] Comment: ANTIBODIES TO HCV NOT DETECTED. DOES NOT EXCLUDE THE POSSIBILITY OF EXPOSURE TO HCV. 06/24/2024 3:40 PM CDT Janelle Del Real NP LABORATORY Final Resul t Performing Organization Address City/[facility]/ZIP Co de Phone Number [facility] [address] [place] [address], [phone] * COLONOSCOPY GENERIC (SCAN ORDER) (12/31/2023) 12/31/2023 [facility] Scanned SCANNING Final Resu lt * PAP SMEAR (SCAN ORDER) (08/05/2023) 08/05/2023 us [facility] Scanned SCANNING Final Resu lt * MAMMOGRAM GENERIC (08/07/2022) Anatomical Region Laterality Modality Other 08/07/2022 [facility] Scanned SCANNING Final Resu lt * DIABETIC RETINOPATHY EXAM (NEGATIVE)(SCAN) (05/12/2022) us Documents Scanned SCANNING Final [facility] Last 3 Months or Most Recently Relevant to Health Maintenance Insurance [facility] MEDIC[facility] Advance Directives * Full Code (Latest Code Status on File) Date Activated Date Inactivated Comments 03/19/2024 5:44 PM 03/20/2024 1:43 PM Care Teams Rubbing Bed Operator Relationship Specialty Start Date End Date Janelle Del Real NP [address] [place] [address] PCP - General NURSE PRACTITIONER 04/21/24 Christiano Umaña MD [facility] [address] [place] [address] Consulting Physician CARDIOVASCULAR DISEASE 01/22/24 Mono Estrada MD [address] [facility] [address] [place] [address] NEUROLOGY 01/22/24
--- OUTSIDE RECORDS SUMMARY | 2025-11-08 17:45 | XMS_ITS | Encounter Summary ---
Author Organization [facility] Address [facility] [place] [address] Care Team Providers Care Intake Nurse Name Role Phone Patti Langley BREAKFAST ATTENDANT Primary Care Provider Unavaila ble Christiano Umaña MD Unavailable Mono Estrada MD Unavailable Janelle Del Real BREAKFAST ATTENDANT Primary Care Provider Encounter Details Date Type Department Care Team (Late st Contact Info) Description 06/14/2020 [facility] Patient Accounts [address] [place] [address] [facility] Provider Notice regarding your payment plan Social History Tobacco Use Types Packs/Day Years Used Date Smoking Tobacco: Every Day Cigarettes Smokeless Tobacco: Never Alcohol Use Standard Drinks/Week Comments Yes 0 (1 standard drink = 0.6 oz pur e alcohol) weekends AUDIT-C Answer Date Recorded Frequency of Alcohol Consumption 2-4 times a thu12/08/2018 Average Number of Drinks 5 or 6 019 Frequency of Binge Drinking Not on file 11/23 PHQ-2 Answer Date Recorded PHQ-2 Score 2 02/20/2019 Comments No Sex and Gender Information Value Date Recorded Sex Assigned at Female 12/28/2024 3:21 PM MACHINIST INSTRUCTOR Legal Sex Female 4:42 PM CDT Gender Identity Female 05/30/2025 11:35 AM CDT Sexual Orientation Not on file COVID-19 Exposure Response Date Recorded In the last month, have you been in contact with someone who was confirmed or suspected to have Coronavirus / COVID-19? No / Unsure 06/11/2020 2:41 PM CDT documented as of this encounter Plan of Treatment Upcoming Encounters Date Type Department Care Team (Late st Contact Info) Description 11/14/2025 12:40 PM MACHINIST INSTRUCTOR Office Visit [facility] Medical Group Multispecialty Care - [place] [address] [place] [address] Janelle Del Real, BREAKFAST ATTENDANT [address] [facility] [address] [place] [address] 11/27/2025 12:00 PM MACHINIST INSTRUCTOR Office Visit [facility] [facility] [address] [place], [place] [id number] Christiano Umaña MD [facility] [address] [place], [place] [phone] 11/27/2025 2:00 PM MACHINIST INSTRUCTOR Appointment [facility] Mammography [address] [place], [place] [phone] Janelle Del Real, BREAKFAST ATTENDANT [address] [facility] [address] [place] [address] documented as of this encounter Visit Diagnoses Not on filedocumented in this encounter Additional Health Concerns Assessment Noted Time PHQ-9 Depression Total Score: 5 12/08/19 19 1:27 PM MACHINIST INSTRUCTOR documented as of this encounter Care Teams Intake Nurse Relationship Specialty Start Date End Date Patti Langley NP PCP - General NURSE PRACTITIONER 11/29/18 04/20/24 Janelle Del Real, BREAKFAST ATTENDANT [address] [facility] [address] [place] [address] PCP - General NURSE PRACTITIONER 04/21/24 Christiano Umaña MD [facility] [address] [place] [address] Consulting Physician CARDIOVASCULAR DISEASE 01/22/24 Mono Estrada MD [address] [address] NEUROLOGY 01/22/24 documented as of this encounter
--- OUTSIDE RECORDS SUMMARY | 2025-11-08 17:45 | XMS_ITS | Encounter Summary ---
Author Organization [facility] Address [address] [place] [address] Care Team Providers Care Body Bumper Name Role Phone Patti Langley CLINIC DIRECTOR Primary Care Provider Unavaila Christiano Reynolds MD Unavailable [phone] Mono Estrada MD Unavailable Janelle Del Real CLINIC DIRECTOR Primary Care Provider Encounter Details Date Type Department Care Team (Late st Contact Info) Description 10/20/2023 [facility] Message Enc [facility] Medical Group Orthopedic & Sports Medicine - [place] [address] [place], [place] [id number] Angel Ochoa MD [address] [place] [address] Referral for surgeon Social History Tobacco Use Types Packs/Day Years [...] on file 11/23 PHQ-2 Answer Date Recorded Patient Health Questionnaire-2 Score 0 05/07/2023 Comments No Sex and Gender Information Value Date Recorded Sex Assigned at Female 12/28/2024 3:21 PM LIVESTOCK SPECULATOR Legal Sex Female 4:42 PM CDT Gender Identity Female 05/30/2025 11:35 AM CDT Sexual Orientation Not on file 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 [place] [address] Janelle Del Real, CLINIC DIRECTOR [address] [facility] [address] [place] [address] 11/27/2025 12:00 PM LIVESTOCK SPECULATOR Office Visit [facility] [address] [place] [address] Christiano Umaña MD [facility] [address] [place] [address] 11/27/2025 2:00 PM LIVESTOCK SPECULATOR Appointment [facility] Mammography [address] [place], [place] [phone] Janelle Del Real, CLINIC DIRECTOR [address] [facility] [address] [place] [address] documented as of this encounter Visit Diagnoses Not on filedocumented in this encounter Additional Health Concerns Assessment Noted Time PHQ-9 Depression Total Score: 5 12/08/19 19 1:27 PM LIVESTOCK SPECULATOR documented as of this encounter Care Teams Body Bumper Relationship Specialty Start Date End Date Patti Langley NP PCP - General NURSE PRACTITIONER 11/29/18 04/20/24 Janelle Del Real, CLINIC DIRECTOR [address] [facility] [address] [place] [address] PCP - General NURSE PRACTITIONER 04/21/24 Christiano Umaña MD Three [facility] [address] [place] [address] Consulting Physician CARDIOVASCULAR DISEASE 01/22/24 Mono Estrada MD [address] [facility] [address] [place] [address] NEUROLOGY 01/22/24 documented as of this encounter
--- OUTSIDE RECORDS SUMMARY | 2025-11-08 17:45 | XMS_ITS | Encounter Summary ---
Author Organization [facility] Address [address] [place] [address] Care Team Providers Care Pet Stylist Name Role Phone Patti Langley TWISTER DOFFER Primary Care Provider Unavaila Christiano Reynolds MD Unavailable [phone] Mono Estrada MD Unavailable Janelle Del Real TWISTER DOFFER Primary Care Provider [phone] Encounter Details Date Type Department Care Team (Late st Contact Info) Description 04/27/2023 AudienceSciencet Message Enc [facility] Family Medicine - [place] [address] [place] [address] Patti Langley, TAY Scheduled MRI for right shoulder. Social History Tobacco Use Types Packs/Day Years [...] Sex Assigned at Female 12/28/2024 3:21 PM [employer] Legal Sex Female 4:42 PM CDT [...] suspected to have Coronavirus/COVID-19? No / Unsure 04/27/2023 11:12 AM CDT documented as of this encounter Plan of Treatment Upcoming Encounters Date Type Department Care Team (Late st Contact Info) Description 11/14/2025 12:40 PM [employer] Office Visit [facility] Multispecial[facility] [place] [address] [place] [address] Janelle Del Real, TWISTER DOFFER [address] [place] [address] 11/27/2025 12:00 PM [employer] Office Visit [facility] [address] [place], [place] [id number] Christiano Umaña MD [facility] [address] [place] [address] 11/27/2025 2:00 PM [employer] Appointment [facility] [address] [place], [place] [id number] Janelle Del Real, TWISTER DOFFER [address] [facility] [address] [place] [address] documented as of this encounter Visit Diagnoses Not on filedocumented in this encounter Additional Health Concerns Assessment Noted Time PHQ-9 Depression Total Score: 5 12/08/19 19 1:27 PM [employer] documented as of this encounter Care Teams Pet Stylist Relationship Specialty Start Date End Date Patti Langley, TWISTER DOFFER PCP - General NURSE PRACTITIONER 11/29/18 04/20/24 Janelle Del Real, TWISTER DOFFER [address] [place] [address] PCP - General NURSE PRACTITIONER 04/21/24 Christiano Umaña MD [facility] [address] [place] [address] Consulting Physician CARDIOVASCULAR DISEASE 01/22/24 Mono Estrada MD [address] [address] NEUROLOGY 01/22/24 documented as of this encounter
== END 2025-11-08 15:06 | disposition home or self-care (01) ==
LOC: ANHFOHIMG 15:07
PROVIDERS: PCP Nurse Practitioner; Visit Provider Nurse Practitioner
DX: Z13.820 Encounter for screening for osteoporosis (principal); M85.88 Other specified disorders of bone density and structure, other site; Z78.0 Asymptomatic menopausal state
CPT/HCPCS: 77080